=== PATIENT | female | born 1985 | race American Indian/Alaskan Native ===

== ENCOUNTER 2017-04-18 16:45 | Emergency (ER) | payer MEDICAID ==
[2017-04-18 18:10] LABS: Basophils % (Auto) 1.7 % (0.0-1.8); Eosinophils % (Auto) 0.2 % (0.0-4.3); Hematocrit 38.3 % (30.3-42.9); Hemoglobin 12.1 gm/dl (10.1-14.3); Mean Corpuscular HGB Conc 32 % (30-34); Mean Corpuscular Volume 76 fl (79-97); Platelet Count 441 K/mm3 (140-440); Red Blood Count 5.01 M/mm3 (3.65-5.03); Red Cell Distribution Width 16.1 % (13.2-15.2); White Blood Count 18.4 K/mm3 (4.5-11.0)
[2017-04-18 18:16] LABS: Mean Corpuscular Hemoglobin 24 pg (28-32)
[2017-04-18] MEDS ORDERED: TORADOL IV ONE (18:24)
[2017-04-18] MEDS ORDERED: NACL 0.9% 1000 ML 1,000 ML IV ONE (18:24)
[2017-04-18] MEDS ORDERED: ZOFRAN IV ONE (18:24)
[2017-04-18] MEDS ORDERED: ROCEPHIN/NS 1 GM/50 ML 1 GM/50 ML BAG IV ONE (18:26)
[2017-04-18 18:29] LABS: Anion Gap 19 mmol/L; BUN/Creatinine Ratio 6.25; Blood Urea Nitrogen 5 mg/dL (7-17); Calcium 8.9 mg/dL (8.4-10.2); Carbon Dioxide 23 mmol/L (22-30); Chloride 98.4 mmol/L (98-107); Glucose 88 mg/dL (65-100); Potassium 3.9 mmol/L (3.6-5.0); Sodium 136 mmol/L (137-145)
--- NOTE | 2017-04-18 18:33 | Emergency Department Report ---
ED Abdominal Pain HPI - General Chief Complaint: Urogenital-Female Stated Complaint: UTI Time Seen by Provider: 04/18/17 18:15 Source: patient Mode of arrival: Ambulatory Limitations: No Limitations - History of Present Illness Initial Comments: pt is a 31 y/o aaf with nmh who presents for left flank pain radiated to lower abdomen with urinary frequency urgency and dysuria x 3 days , noted noc fever with nausea and vomiting last po intake yesterday , no hematuria , LMP 2 weeks ago not sexually active MD Complaint: flank pain Onset/Timin -: days(s) Location: L flank Radiation: suprapubic Migration to: suprapubic Severity: moderate Severity scale (0 -10): 6 Quality: sharp Consistency: constant Improves With: nothing Worsens With: movement Associated Symptoms: nausea, vomiting, fever, chills, dysuria, anorexia. denies : diarrhea, constipation, hematemesis, hematochezia, melena, hematuria, syncope - Related Data LMP Date: 04/03/17 LMP (females 10-50): last week Previous Rx's Medication Instructions Recorded Last Taken Type Levofloxacin [Levaquin TAB] 500 mg PO DAILY #10 tablet 04/18/17 Unknown Rx Naproxen [Naprosyn TAB] 500 mg PO BID PRN #60 tablet 04/18/17 Unknown Rx Allergies Allergy/AdvReac Type Severity Reaction Status Date / Time No Known Allergies Allergy Verified 04/18/17 17:23 ED Review of Systems ROS: Stated complaint: UTI Other details as noted in HPI Constitutional: denies: chills, fever Eyes: denies: eye pain, eye discharge, vision change ENT: denies: ear pain, throat pain Respiratory: denies: cough, shortness of breath, wheezing Cardiovascular: denies: chest pain, palpitations Endocrine: no symptoms reported Gastrointestinal: nausea, vomiting, other (left flank pain ). denies: abdominal pain, diarrhea, constipation, hematemesis, melena, hematochezia Genitourinary: urgency, dysuria, frequency. denies: hematuria, discharge, abnormal menses, dyspareunia Musculoskeletal: denies: back pain, joint swelling, arthralgia Skin: denies: rash, lesions Neurological: denies: headache, weakness, paresthesias Psychiatric: denies: anxiety, depression Hematological/Lymphatic: denies: easy bleeding, easy bruising ED Past Medical Hx - Past Medical History Additional medical history: OBESITY - Surgical History Additional Surgical History: X 2 - Social History Smoking Status: Current Some Day Smoker Substance Use Type: None - Medications Home Medications: Home Medications Medication Instructions Recorded Confirmed Last Taken Type Levofloxacin [Levaquin TAB] 500 mg PO DAILY #10 tablet 04/18/17 Unknown Rx Naproxen [Naprosyn TAB] 500 mg PO BID PRN #60 tablet 04/18/17 Unknown Rx ED Physical Exam - General Limitations: No Limitations General appearance: alert, obese - Head Head exam: Present: atraumatic, normocephalic - Eye Eye exam: Present: normal appearance - ENT ENT exam: Present: mucous membranes moist - Neck Neck exam: Present: normal inspection - Respiratory Respiratory exam: Present: normal lung sounds bilaterally. Absent: respiratory distress, wheezes, stridor - Cardiovascular Cardiovascular Exam: Present: normal rhythm, tachycardia. Absent: systolic murmur, diastolic murmur, rubs, gallop - GI/Abdominal GI/Abdominal exam: Present: soft, normal bowel sounds. Absent: distended, tenderness, guarding, rebound, mass, bruit, pulsatile mass, hernia - Rectal Rectal exam: Present: deferred - Extremities Exam Extremities exam: Present: normal inspection, full ROM, normal capillary refill. Absent: tenderness - Back Exam Back exam: Present: full ROM, tenderness, CVA tenderness (L). Absent: muscle spasm, paraspinal tenderness, vertebral tenderness, rash noted - Neurological Exam Neurological exam: Present: alert, oriented X3, CN II-XII intact, normal gait, reflexes normal - Psychiatric Psychiatric exam: Present: normal affect, normal mood - Skin Skin exam: Present: warm, dry, intact. Absent: rash ED Course Vital Signs 04/18/17 04/18/17 17:25 19:23 Temperature 100.8 F H Pulse Rate 112 H Respiratory 17 18 Rate Blood Pressure 140/85 O2 Sat by Pulse 100 Oximetry ED Medical Decision Making - Lab Data Result diagrams: 04/18/17 17:43 04/18/17 17:43 Laboratory Tests 04/18/17 04/18/17 04/18/17 17:28 17:43 17:43 WBC 18.4 H RBC 5.01 Hgb 12.1 Hct 38.3 MCV 76 L MCH 24 L MCHC 32 RDW 16.1 H Plt Count 441 H Lymph % (Auto) 5.5 L [place] % (Auto) 6.7 Eos % (Auto) 0.2 Baso % (Auto) 1.7 Lymph # 1.0 L [place] # 1.2 H Eos # 0.0 Baso # 0.3 H Seg Neutrophils % 85.9 H Seg Neutrophils # 15.8 H Sodium 136 L Potassium 3.9 Chloride 98.4 Carbon Dioxide 23 Anion Gap 19 BUN 5 L Creatinine 0.8 Estimated GFR > 60 BUN/Creatinine Ratio 6.25 Glucose 88 POC Glucose 93 Calcium 8.9 HCG, Qual Urine Color Urine Turbidity Urine pH Ur Specific [place] Urine Protein Urine Glucose (UA) Urine Ketones Urine Blood Urine Nitrite Urine Bilirubin Urine Urobilinogen Ur Leukocyte Esterase Urine WBC (Auto) Urine RBC (Auto) U Epithel Cells (Auto) Urine Mucus 04/18/17 04/18/17 17:43 18:15 WBC RBC Hgb Hct MCV MCH MCHC RDW Plt Count Lymph % (Auto) [place] % (Auto) Eos % (Auto) Baso % (Auto) Lymph # [place] # Eos # Baso # Seg Neutrophils % Seg Neutrophils # Sodium Potassium Chloride Carbon Dioxide Anion Gap BUN Creatinine Estimated GFR BUN/Creatinine Ratio Glucose POC Glucose Calcium HCG, Qual Negative Urine Color Yellow Urine Turbidity Clear Urine pH 8.0 H Ur Specific [place] 1.012 Urine Protein <15 mg/dl Urine Glucose (UA) Neg Urine Ketones Neg Urine Blood Sm Urine Nitrite Neg Urine Bilirubin Neg Urine Urobilinogen < 2.0 Ur Leukocyte Esterase Lg Urine WBC (Auto) 179.0 H Urine RBC (Auto) 3.0 U Epithel Cells (Auto) 1.0 Urine Mucus Few - Radiology Data Radiology results: report reviewed Pyelonephritis right kidney no hydronephrosis - Medical Decision Making pt is a 31 y/o aaf with nmh who present for left flank pain fever dysuria and frequency x 3 days with n/v and loss of appetite, pt denies sexual activity , exam: left cva tenderness abd: obese bs x 4 qds no rebound no bruit soft nontender, pt denies hematuria, lmp 2 weeks ago, labs noted wbc +, Leuk+, ct abd pelvis: right pyelonephritis, no hydronephrosis, pt tx with ns 1 liter, rocephin 1gm ivpb, ketorlac, zofran symptoms are relieved pain now reported at plan dc to home with Levaquin 500mg po daily, Tramdol zofran po and follow up with pcp upon appointment pt verbalized agreement and understanding with discharge plan. pt symptoms markedly improved tolerate po intake no nausea or vomiting expesses which for outpatient management, provider agrees , will tx outpt discuss importance of adherence rx regimen and return to emergency if symptoms worsen. pt verbalized agreement with discharge plan. Critical care attestation.: If time is entered above; I have spent that time in minutes in the direct care of this critically ill patient, excluding procedure time. ED Disposition Clinical Impression: Pyelonephritis UTI (urinary tract infection) Qualifiers: Urinary tract infection type: acute pyelonephritis Qualified Code(s): N10 - Acute pyelonephritis Disposition: DC-01 TO HOME OR SELFCARE Is pt being admited?: No Does the pt Need Aspirin: No Condition: Good Instructions: Urinary Tract Infection in Women (ED) Prescriptions: Levofloxacin [Levaquin TAB] 500 mg PO DAILY #10 tablet Naproxen [Naprosyn TAB] 500 mg PO BID PRN #60 tablet PRN Reason: Pain Referrals: PRIMARY CARE, [Primary Care Provider] - 3-5 Days Forms: Work/School Release Form(ED) Time of Disposition: 20:59
[2017-04-18 19:01] LABS: Bilirubin,Urine NEG (Negative); Blood,Urine SM (Negative); Ketones,Urine NEG (Negative); Leukocyte Esterase,Urine LG (Negative); Mucus,Urine FEW /HPF; Nitrite,Urine NEG (Negative); Protein,Urine <15 mg/dL mg/dL (Negative); Urobilinogen,Urine < 2.0 mg/dL (<2.0)
[2017-04-18] MEDS ORDERED: NACL ONE (19:18)
--- NOTE | 2017-04-18 20:40 | Cat Scan Report ---
FINAL REPORT EXAM: CT ABDOMEN PELVIS W CON HISTORY: r/o obstructive stone/nephrosis / pyelo TECHNIQUE: CT of the abdomen and pelvis with IV contrast. Coronal and sagittal reconstructed imaging provided. PRIORS: None currently available. FINDINGS: ABDOMEN: Series 2:110 and series 200:108 demonstrates a ill-defined area decreased cortical attenuation upper right kidney with associated focal perinephric stranding. Findings may represent a focal right pyelonephritis. Differential diagnosis would include a lesion. No right hydronephrosis or stone is evident. Left kidney appears relatively unremarkable. No perinephric stranding. No left hydronephrosis. No obvious stone. Mild bilateral pelviectasis. Liver, gallbladder, spleen, pancreas, and adrenals are unremarkable. Small hiatal hernia. Stomach is otherwise unremarkable. IVC is intact. No abdominal aortic aneurysm or dissection. No periaortic or retroperitoneal mass or adenopathy. Diverticulosis of the descending and sigmoid colon. Mild stool throughout the colon. No wall thickening or inflammatory changes. Terminal ilium is unremarkable. Appendix is not clearly identified. There are no pericecal inflammatory changes. Small bowel loops are unremarkable. No obstructive pattern. No free air. No free fluid. PELVIS: Bladder is unremarkable. No wall thickening. No distinct lesions. Limited CT images of the uterus are grossly unremarkable. There is no pelvic mass or adenopathy. Inguinal regions are unremarkable. Bones: No suspicious osseous lesions on this limited examination of the skeleton. Metastatic disease better evaluated with bone scan. Degenerative changes are in the spine. IMPRESSION: Focal area of ill-defined decreased cortical attenuation in the right upper kidney may represent a focal pyelonephritis. Differential diagnosis would include lesion or tumor. Mild adjacent perinephric stranding noted. No hydronephrosis. No right nephroureteral stone.
[2017-04-18 21:50] VITALS: BP 129/69
== END 2017-04-18 21:10 | disposition home or self-care (01) ==
LOC: ED 16:45
DX: N10 Acute pyelonephritis (principal); F17.200 Nicotine dependence, unspecified, uncomplicated
CPT/HCPCS: 36415; 74177; 80048; 81001; 82962; 84703; 85025; 96365; 96375; 99284; J0696; J1885; J2405; J7030; Q9967

== ENCOUNTER 2017-07-31 18:58 | Emergency (ER) | payer MEDICAID ==
[2017-07-31 19:41] LABS: Hematocrit 42.8 % (30.3-42.9); Hemoglobin 13.3 gm/dl (10.1-14.3); Mean Corpuscular HGB Conc 31 % (30-34); Mean Corpuscular Volume 76 fl (79-97); Platelet Count 389 K/mm3 (140-440); Red Blood Count 5.63 M/mm3 (3.65-5.03); Red Cell Distribution Width 17.1 % (13.2-15.2); White Blood Count 16.9 K/mm3 (4.5-11.0)
[2017-07-31 19:43] LABS: Mean Corpuscular Hemoglobin 24 pg (28-32)
[2017-07-31 19:57] LABS: Anion Gap 16 mmol/L; BUN/Creatinine Ratio 9; Blood Urea Nitrogen 9 mg/dL (7-17); Calcium 8.6 mg/dL (8.4-10.2); Carbon Dioxide 26 mmol/L (22-30); Chloride 102.3 mmol/L (98-107); Glucose 71 mg/dL (65-100); Potassium 4.2 mmol/L (3.6-5.0); Sodium 140 mmol/L (137-145)
[2017-07-31 21:26] LABS: Bilirubin,Urine NEG (Negative); Blood,Urine NEG (Negative); Ketones,Urine NEG (Negative); Leukocyte Esterase,Urine SM (Negative); Mucus,Urine 3+ /HPF; Nitrite,Urine NEG (Negative)
[2017-07-31 23:38] VITALS: BP 130/87
[2017-08-01 06:50] LABS: Urine Drugs of Abuse Note Disclamer
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
[2017-08-01 06:54] LABS: Creatine Kinase 67 units/L (30-135)
[2017-08-01 07:01] LABS: Creatine Kinase MB < 1.0 ng/mL (0.0-4.0)
--- NOTE | 2017-08-01 07:15 | Cat Scan Report ---
CT scan of head without IV contrast: History: Syncope. Findings: Ventricles are normal in size and midline in location. No evidence of acute ischemia, hemorrhage or mass. No extra-axial fluid collection. Normal brainstem and cerebellum. Normal sinuses and mastoid air cells. Impression: No acute intracranial abnormality.
[2017-08-01] MEDS ORDERED: NACL ONE ×2 (08:17→09:23)
--- NOTE | 2017-08-01 09:51 | Cat Scan Report ---
CTA chest: History: Syncope. Findings: No evidence of aortic aneurysm or pulmonary embolism. No mediastinal mass or adenopathy. No pleural or pericardial effusion. Normal lung parenchyma. No discrete nodularity or consolidation. Impression: No acute cardiopulmonary findings.
== END 2017-08-01 10:27 | disposition home or self-care (01) ==
LOC: ED 18:58
DX: R55 Syncope and collapse (principal); F17.200 Nicotine dependence, unspecified, uncomplicated
CPT/HCPCS: 36415; 70450; 71275; 80048; 80307; 81001; 81025; 82550; 82553; 84484; 85027; 85379; 93005; 93010; 99284; Q9967

== ENCOUNTER 2018-01-10 15:46 | Emergency (ER) | payer MEDICAID ==
[2018-01-10] MEDS ORDERED: ZOFRAN ODT PO ONE (20:31)
[2018-01-10] MEDS ORDERED: TYLENOL PO ONE (20:31)
--- NOTE | 2018-01-10 20:57 | Emergency Department Report ---
ED Shortness of Breath HPI - General Chief Complaint: Weakness Stated Complaint: SHORTNESS OF BREATH/12 WEEKS Time Seen by Provider: 01/10/18 20:21 Source: patient Mode of arrival: Ambulatory Limitations: No Limitations - History of Present Illness Initial Comments: 32-year-old obese female presents to the hospital with complaints of sudden onset of shortness of breath patient prior to arrival. Patient states she was returning from work when symptoms began. They lasted for approximately 45 minutes prior to resolving. Patient complains of a right-sided headache typical of her previous migraine headaches. Patient denies chest pain, nausea, vomiting, or diaphoresis. 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 This patient's fourth , she has 4 children (one twin gestation) and reports that she has had elevated blood pressure during her pregnancies in the past. She denies a history of preeclampsia/eclampsia. - Related Data Previous Rx's Medication Instructions Recorded Last Taken Type Levofloxacin [Levaquin TAB] 500 mg PO DAILY #10 tablet 04/18/17 Unknown Rx Naproxen [Naprosyn TAB] 500 mg PO BID PRN #60 tablet 04/18/17 Unknown Rx Allergies Allergy/AdvReac Type Severity Reaction Status Date / Time No Known Allergies Allergy Verified 01/10/18 15:52 ED Review of Systems ROS: Stated complaint: SHORTNESS OF BREATH/12 WEEKS Other details as noted in HPI Comment: All other systems reviewed and negative ED Past Medical Hx - Past Medical History Previous Medical History?: No Additional medical history: OBESITY - Surgical History Additional Surgical History: X 2 - Social History Smoking Status: Current Some Day Smoker Substance Use Type: None - Medications Home Medications: Home Medications Medication Instructions Recorded Confirmed Last Taken Type Levofloxacin [Levaquin TAB] 500 mg PO DAILY #10 tablet 04/18/17 Unknown Rx Naproxen [Naprosyn TAB] 500 mg PO BID PRN #60 tablet 04/18/17 Unknown Rx ED Physical Exam - General Limitations: No Limitations - Other Other exam information: General: No limitations, patient is alert in no acute distress Head exam: Atraumatic, normocephalic Eyes exam: Normal appearance, , extraocular movements intact ENT: Moist mucous membrane, normal oropharynx Neck exam: Normal inspection, full range of motion, no meningismus nontender Respiratory exam: Clear to auscultation bilateral, no wheezes, rales, crackles Cardiovascular: Normal rate and rhythm, normal heart sounds Abdomen: Soft, nondistended, and nontender, with normal bowel sounds, no rebound, or guarding Extremity: Full range of motion normal inspection no deformity, no calf tenderness or edema Back: Normal Inspection, full range of motion, no tenderness Neurologic: Alert, oriented x3, cranial nerves intact, no motor or sensory deficit Psychiatric: normal affect, normal mood Skin: Warm, dry, intact ED Course Vital Signs 01/10/18 01/10/18 01/10/18 15:52 20:34 20:45 Temperature 98.4 F Pulse Rate 101 H 84 76 Respiratory 18 20 24 Rate Blood Pressure 140/96 169/103 O2 Sat by Pulse 100 80 L Oximetry 01/10/18 01/10/18 01/10/18 20:56 21:00 21:15 Temperature Pulse Rate 72 68 Respiratory 20 23 22 Rate Blood Pressure 161/96 161/96 O2 Sat by Pulse 98 100 100 Oximetry 01/10/18 01/10/18 01/10/18 21:31 21:45 22:01 Temperature Pulse Rate 80 66 82 Respiratory 16 20 13 Rate Blood Pressure 148/81 148/81 129/81 O2 Sat by Pulse 100 100 100 Oximetry 01/10/18 22:15 Temperature Pulse Rate 80 Respiratory 17 Rate Blood Pressure 129/81 O2 Sat by Pulse 100 Oximetry ED Medical Decision Making - Lab Data Result diagrams: 01/10/18 20:50 01/10/18 20:50 Lab Results 01/10/18 01/10/18 01/10/18 Range/Units 20:50 20:50 20:50 WBC 15.7 H (4.5-11.0) K/mm3 RBC 4.53 (3.65-5.03) M/mm3 Hgb 10.9 (10.1-14.3) gm/dl Hct 35.0 (30.3-42.9) % MCV 77 L (79-97) fl MCH 24 L (28-32) pg MCHC 31 (30-34) % RDW 16.1 H (13.2-15.2) % Plt Count 356 (140-440) K/mm3 Lymph % (Auto) 10.1 L (13.4-35.0) % [place] % (Auto) 4.1 (0.0-7.3) % Eos % (Auto) 0.5 (0.0-4.3) % Baso % (Auto) 0.5 (0.0-1.8) % Lymph # 1.6 (1.2-5.4) K/mm3 [place] # 0.6 (0.0-0.8) K/mm3 Eos # 0.1 (0.0-0.4) K/mm3 Baso # 0.1 (0.0-0.1) K/mm3 Seg Neutrophils % 84.8 H (40.0-70.0) % Seg Neutrophils # 13.4 H (1.8-7.7) K/mm3 D-Dimer 317.81 H (0-234) ng/mlDDU Sodium 136 L (137-145) mmol/L Potassium 3.8 (3.6-5.0) mmol/L Chloride 98.9 (98-107) mmol/L Carbon Dioxide 22 (22-30) mmol/L Anion Gap 19 mmol/L BUN 5 L (7-17) mg/dL Creatinine 0.5 L (0.7-1.2) mg/dL Estimated GFR > 60 ml/min BUN/Creatinine Ratio 10 % Glucose 78 (65-100) mg/dL Calcium 8.6 (8.4-10.2) mg/dL NT-Pro-B Natriuret Pep 18.81 (0-450) pg/mL - EKG Data -: EKG Interpreted by Or EKG shows normal: sinus rhythm, axis (qrs 33), QRS complexes (qrsd 80), ST-T waves (no stemi/t inv) Rate: normal (88) - Radiology Data Radiology results: report reviewed CT angio chest IMPRESSION: No evidence of pulmonary embolus, aortic dissection, or vascular congestion. No acute process in the chest. Small hiatal hernia. - Medical Decision Making Headache Typical of previous migraines Treated with Tylenol and Zofran sob neg cta angio for pe no acute process h/h normal vitals normal sx improved incidental hiatal hernia plan to d/c home with f/u - Differential Diagnosis anxiety, arrhythmia, anemia, PE, migraine Critical Care Time: No Critical care attestation.: If time is entered above; I have spent that time in minutes in the direct care of this critically ill patient, excluding procedure time. ED Disposition Clinical Impression: , Intermittent palpitations, Hiatal hernia, Migraine headache Disposition: TO HOME OR SELFCARE Is pt being admited?: No Does the pt Need Aspirin: No Condition: Stable Instructions: Migraine Headache (ED), Palpitations (ED), (ED), Hiatal Hernia (ED) Additional Instructions: Take Tylenol as needed for pain. Follow-up with your ELECTRIC METER INSPECTOR doctor. Return is symptoms worsen as indicated by your discharge instructions Referrals: [facility] [Provider Group] - 3-5 Days Time of Disposition: 23:37
[2018-01-10 21:05] LABS: Basophils # (Auto) 0.1 K/mm3 (0.0-0.1); Basophils % (Auto) 0.5 % (0.0-1.8); Eosinophils # (Auto) 0.1 K/mm3 (0.0-0.4); Eosinophils % (Auto) 0.5 % (0.0-4.3); Hemoglobin 10.9 gm/dl (10.1-14.3); Lymphocytes # (Auto) 1.6 K/mm3 (1.2-5.4); Lymphocytes % (Auto) 10.1 % (13.4-35.0); Mean Corpuscular HGB Conc 31 % (30-34); Mean Corpuscular Volume 77 fl (79-97); Monocytes # (Auto) 0.6 K/mm3 (0.0-0.8); Monocytes % (Auto) 4.1 % (0.0-7.3); Platelet Count 356 K/mm3 (140-440); Red Blood Count 4.53 M/mm3 (3.65-5.03); Red Cell Distribution Width 16.1 % (13.2-15.2)
[2018-01-10 21:09] LABS: Mean Corpuscular Hemoglobin 24 pg (28-32)
[2018-01-10 21:28] LABS: BUN/Creatinine Ratio 10; Blood Urea Nitrogen 5 mg/dL (7-17); Calcium 8.6 mg/dL (8.4-10.2); Hemolysis Index 4
[2018-01-10] MEDS ORDERED: NACL ONE (22:13)
[2018-01-10 23:20] VITALS: BP 129/81
--- NOTE | 2018-01-10 23:25 | Cat Scan Report ---
FINAL REPORT EXAM: CT ANGIO CHEST HISTORY: sob, elevated ddimer, TECHNIQUE: A CT angiogram was obtained of the thorax following the intravenous injection of 100 cc of Omnipaque 350. Rotational, sagittal, and coronal MIP reconstructions were reviewed FINDINGS: The lungs are clear. There no evidence of congestion. There is no evidence of pulmonary embolus or aortic dissection. The heart is mildly enlarged. Pericardial fluid is not seen. There is no evidence of adenopathy or pleural effusion. In the upper abdomen the adrenal glands appear normal. There is a small hiatal hernia. The skeletal structures are well-maintained. At the thoracic inlet the thyroid gland appears normal. IMPRESSION: No evidence of pulmonary embolus, aortic dissection, or vascular congestion. No acute process in the chest. Small hiatal hernia.
== END 2018-01-11 00:16 | disposition home or self-care (01) ==
LOC: ED 15:46
DX: O99.411 Diseases of the circulatory system complicating pregnancy, first trimester (principal); R00.2 Palpitations; R06.02 Shortness of breath; O99.351 Diseases of the nervous system complicating pregnancy, first trimester; G43.909 Migraine, unspecified, not intractable, without status migrainosus; O99.611 Diseases of the digestive system complicating pregnancy, first trimester; K44.9 Diaphragmatic hernia without obstruction or gangrene; O99.331 Smoking (tobacco) complicating pregnancy, first trimester; F17.200 Nicotine dependence, unspecified, uncomplicated; Z3A.12 12 weeks gestation of pregnancy
CPT/HCPCS: 36415; 71275; 80048; 83880; 85025; 85379; 93005; 93010; 99284; Q9967; Q0162

== ENCOUNTER 2018-03-19 20:50 | Outpatient (CLI) | payer MEDICAID ==
[2018-03-19 21:37] VITALS: BP 131/76
[2018-03-19] MEDS ORDERED: LACTATED RINGERS 500 ML IV ONE (22:19)
[2018-03-19 22:33] LABS: Amorphous Crystals,Urine Few; Bilirubin,Urine NEG (Negative); Blood,Urine NEG (Negative); Color,Urine Amber (Yellow); Mucus,Urine 2+ /HPF
--- NOTE | 2018-03-20 01:41 | Ultrasound Report ---
FINAL REPORT EXAM: US OB LIMITED HISTORY: Spotting COMPARISON: None available. TECHNIQUE: Several real-time grayscale and color Doppler images were obtained. FINDINGS: Twin live intrauterine gestations. Twin a heart rate 151 beats per minute. Placenta location anterior. No placenta previa. Twin B heart rate 140 beats per minute. Placenta location posterior. No placenta previa. Cervix is closed and measures 4.1 centimeters in length. Diamniotic dichorionic . IMPRESSION: Twin live intrauterine gestations. Diamniotic, dichorionic . Limited exam performed for evaluation of placental location cervical length.
== END 2018-03-20 00:04 | disposition home or self-care (01) ==
LOC: TRG 20:50
PROVIDERS: ATTEND Obstetrics & Gynecology
DX: O46.92 Antepartum hemorrhage, unspecified, second trimester (principal); Z82.49 Family history of ischemic heart disease and other diseases of the circulatory system; Z83.3 Family history of diabetes mellitus; Z3A.23 23 weeks gestation of pregnancy
CPT/HCPCS: 59025; 76815; 81001

== ENCOUNTER 2018-05-12 15:28 | Outpatient (CLI) | payer MEDICAID ==
[2018-05-12] MEDS ORDERED: LACTATED RINGERS 500 ML IV ONE (15:46)
[2018-05-12 16:32] VITALS: BP 125/63
[2018-05-12 16:58] LABS: Hematocrit 27.2 % (30.3-42.9); Hemoglobin 8.5 gm/dl (10.1-14.3); Mean Corpuscular HGB Conc 31 % (30-34); Mean Corpuscular Hemoglobin 22 pg (28-32); Mean Corpuscular Volume 70 fl (79-97); Platelet Count 343 K/mm3 (140-440); Red Blood Count 3.89 M/mm3 (3.65-5.03); Red Cell Distribution Width 17.5 % (13.2-15.2)
[2018-05-12 17:19] LABS: Alanine Aminotransferase 11 units/L (7-56); Uric Acid 3.9 mg/dL (3.5-7.6)
[2018-05-12 17:21] LABS: Bilirubin,Urine NEG (Negative); Blood,Urine NEG (Negative); Mucus,Urine 2+ /HPF
[2018-05-12 17:25] LABS: Color,Urine Yellow (Yellow)
--- NOTE | 2018-05-12 18:25 | Ultrasound Report ---
FINAL REPORT EXAM: US OB BPP EA ADD EXAM HISTORY: WELL BEING for baby B TECHNIQUE: Ultrasound examination of the gravid uterus for biophysical profile evaluation of the fetus PRIORS: 03/19/2018 FINDINGS: There is a single viable intrauterine with documented cardiac activity. heart rate: 156 bpm Evaluation for biophysical profile yields the following score as reported by technologist from real-time exam: respiratory motion (minimum one episode): 2 Gross body movement (minimum 3 movements): 2 tone (minimum one flexion and extension): 2 Amniotic fluid volume (at least 2 cm pocket in vertical diameter): 2 IMPRESSION: Single viable intrauterine with 8/8 biophysical profile score during the sonographic evaluation for baby B
--- NOTE | 2018-05-12 18:26 | Ultrasound Report ---
FINAL REPORT EXAM: US OB BPP WO NON-STRESS HISTORY: labor , well-being for baby A TECHNIQUE: Ultrasound examination of the gravid uterus for biophysical profile evaluation of the fetus PRIORS: 03/19/2018 FINDINGS: There is a single viable intrauterine with documented cardiac activity. The amniotic fluid volume is normal. heart rate: 155 bpm Evaluation for biophysical profile yields the following score as reported by technologist from real-time exam: respiratory motion (minimum one episode): 2 Gross body movement (minimum 3 movements): 2 tone (minimum one flexion and extension): 2 Amniotic fluid volume (at least 2 cm pocket in vertical diameter): 2 IMPRESSION: Single viable intrauterine with 8/8 biophysical profile score during the sonographic evaluation for baby A
--- NOTE | 2018-05-12 18:35 | Ultrasound Report ---
FINAL REPORT EXAM: US OB LIMITED HISTORY: labor, twins TECHNIQUE: Ultrasound evaluation of the gravid uterus PRIORS: 03/19/2018 FINDINGS: There is a twin viable intrauterine with documented cardiac activity. The maternal cervix is closed. Maternal cervix length: 3.7cm Amniotic fluid maximum vertical pocket: 3.1 cm twin A and 3.3 cm twin B LMP estimated gestational age: 30 weeks 6 days LMP estimated delivery date: 07/15/2018 Twin A: No definite ratio abnormality. Heart rate: 160 beats per minute position: Transverse head maternal right Twin B: No definite ratio abnormality. Heart rate: 158 beats per minute position: Transverse head maternal left IMPRESSION: Viable twin intrauterine with the above parameters
--- NOTE | 2018-05-12 19:29 | Ultrasound Report ---
FINAL REPORT PROCEDURE: US OB VELOCIMETRY UMBILCAL ART TECHNIQUE: Real-time limited sonographic examination was performed for evaluation of umbilical cord Doppler. Doppler and spectral waveform analysis performed. HISTORY: well being. COMPARISON: Reports from obstetric ultrasounds dated to day. FINDINGS: LMP: 10/08/2017. Clinical age: 30 weeks 6 days. EDC: 07/15/2018. Twin B heart rate: 150 beats per minute S/D ratio: 3.09. One loop was greater than 4, average less than 4. Resistive index: 0.64. Normal waveform. IMPRESSION: S/D ratio is elevated, one S/D loop greater than 4, the average was less than 4. Consider clinical correlation if there is concern for utero placental insufficiency.
--- NOTE | 2018-05-12 19:31 | Ultrasound Report ---
FINAL REPORT PROCEDURE: US OB VELOCIMETRY UMBILCAL ART TECHNIQUE: Real-time limited sonographic examination was performed for evaluation of umbilical cord Doppler. Doppler and spectral waveform analysis performed. HISTORY: well being. COMPARISON: Reports from obstetric ultrasounds dated today. FINDINGS: LMP: 10/08/2017. Clinical age: 30 weeks 6 days. EDC: 07/15/2018. Twin A heart rate: 149 beats per minute S/D ratio: 2.05, normal waveform Resistive index: 0.84, normal waveform Impression Normal umbilical cord Doppler exam.
== END 2018-05-12 18:24 | disposition home or self-care (01) ==
LOC: TRG 15:28
PROVIDERS: ATTEND Obstetrics & Gynecology
DX: O47.03 False labor before 37 completed weeks of gestation, third trimester (principal); Z3A.30 30 weeks gestation of pregnancy
CPT/HCPCS: 36415; 59025; 76815; 76819; 76820; 81001; 82565; 83615; 84450; 84460; 84550; 85027

== ENCOUNTER 2018-06-03 19:19 | Outpatient (CLI) | payer MEDICAID, OTHER ==
[2018-06-03] MEDS ORDERED: LACTATED RINGERS 1,000 ML IV ONE (20:33)
[2018-06-03 21:14] LABS: Bilirubin,Urine NEG (Negative); Blood,Urine NEG (Negative); Color,Urine Yellow (Yellow); Mucus,Urine 1+ /HPF
[2018-06-03] MEDS ORDERED: PERCOCET 5/325 PO ONE (23:04)
[2018-06-03] MEDS ORDERED: LACTATED RINGERS 1,000 ML ONE (23:38)
[2018-06-04] MEDS: BRETHINE SUB-Q SCH ×3 (01:05→01:51)
[2018-06-04 01:06] VITALS: BP 126/74
== END 2018-06-04 02:33 | disposition home or self-care (01) ==
LOC: TRG 19:19
PROVIDERS: ATTEND Obstetrics & Gynecology
DX: O26.893 Other specified pregnancy related conditions, third trimester (principal); M54.5 Low back pain; R51 Headache; Z3A.34 34 weeks gestation of pregnancy; Z83.3 Family history of diabetes mellitus; Z82.49 Family history of ischemic heart disease and other diseases of the circulatory system
CPT/HCPCS: 59025; 81001; 96360; 96361; 96372; J3105; J7120

== ENCOUNTER 2018-06-12 11:34 | Inpatient (IN) | payer MEDICAID, OTHER ==
--- NOTE | 2018-06-12 08:57 | History and Physical Report ---
History of Present Illness Date of admission: scheduled repeat section History of present illness: 32yo G P 35 2/7weeks with dichorionic-diamnoitic twin gestation presents for repeat section. This has been complicated by IUGR of Twin B (3%), chronic hypertension, morbid obesity and multiple sclerosis. She reports good movement of both twins, no loss of fluid and no vaginal bleeding. She has been comanaged with [facility] but did miss one month of appointments. At her last appointment it was noted that Twin B remained IUGR and and the decision was made to proceed to delivery. She has received betamethasone for lung maturity. Last dose 05/16/18. Past History - Obstetrical History : 4 Medications and Allergies Allergies Allergy/AdvReac Type Severity Reaction Status Date / Time No Known Allergies Allergy Verified 01/10/18 15:52 Home Medications Medication Instructions Recorded Confirmed Last Taken Type Pnv No.95/Ferrous Fum/Folic AC 1 each PO DAILY 05/22/18 06/04/18 06/02/18 History [Prenavite Tablet] Results Result Diagrams: 06/12/18 12:00 All other labs normal. Assessment and Plan - Patient Problems (1) Dichorionic diamniotic twin gestation Current Visit: No Status: Acute Plan to address problem: 1. s/p betamethasone 05/25-05/26/18 2. IUGR Twin B - decision made to proceed to repeat csection with [facility] comanagement. Risks including but not limited to bleeding, infection, need for blood transfusion or hysterectomy, potential injury to bladder, bowel and surrounding organs and risks of surgery including stroke, myocardial infection discussed and informed consent signed. 3. IVF, Ancef 4. SCDs (2) Chronic hypertension affecting Current Visit: No Status: Acute Plan to address problem: 1. Will monitor BP and evaluate for superimposed preeclampsia if clinically indicated. (3) Morbid obesity Current Visit: No Status: Acute (4) Multiple sclerosis Current Visit: No Status: Acute Plan to address problem: stable (5) IUGR (intrauterine growth restriction) Current Visit: No Status: Acute Plan to address problem: 1. Delivery planned today Twin B EFW 3% 1903g, 4lb 3 oz Cephalic Twin A EFW 13% 2150g, 4lb 12 oz Breech (6) Encounter for female sterilization procedure Current Visit: No Status: Acute Plan to address problem: 1. Patient is multiparous and desires permanent sterilization. Risks including but not limited to risk of failure and ectopic discussed and informed consent signed. (7) Anemia Current Visit: Yes Status: Acute Plan to address problem: Anemia of - Type Cross and hold 2 units packed red blood cells for OR due to increased risk of bleeding (twin gestation, morbid obesity, previous csection x 2)
[~2018-06-12 11:34] MED LIST: ANCEF/STERILE WATER 2 GM/20 ML 2 GM/20 ML SYRINGE IV NR; BICITRA PO ONE; LACTATED RINGERS 1,000 ML IV SCH; PEPCID IV ONE; PITOCin/NS 20 UNIT/1000ML DRIP 20 UNITS/1,000 ML BAG IV SCH; REGLAN IV ONE
[2018-06-12 12:42] LABS: Basophils % (Auto) 0.4 % (0.0-1.8); Eosinophils % (Auto) 0.3 % (0.0-4.3); Hematocrit 29.5 % (30.3-42.9); Hemoglobin 9.3 gm/dl (10.1-14.3); Lymphocytes # (Auto) 1.4 K/mm3 (1.2-5.4); Lymphocytes % (Auto) 13.5 % (13.4-35.0); Mean Corpuscular HGB Conc 32 % (30-34); Mean Corpuscular Hemoglobin 21 pg (28-32); Mean Corpuscular Volume 68 fl (79-97); Monocytes # (Auto) 0.5 K/mm3 (0.0-0.8); Monocytes % (Auto) 4.4 % (0.0-7.3); Platelet Count 322 K/mm3 (140-440); Red Blood Count 4.34 M/mm3 (3.65-5.03); Red Cell Distribution Width 18.9 % (13.2-15.2)
[2018-06-12] MEDS ORDERED: PEPCID IV ONE (13:07)
[2018-06-12] MEDS ORDERED: REGLAN ONE (13:07)
[2018-06-12] MEDS ORDERED: BICITRA ONE (13:07)
[2018-06-12] MEDS ORDERED: NACL 0.9% 500 ML 500 ML IV ONE (13:15)
[2018-06-12] MEDS ORDERED: MORPHINE ONE (14:27)
[2018-06-12] MEDS ORDERED: WATER FOR IRRIG STERILE IR ONE (14:53)
[2018-06-12] MEDS ORDERED: NACL 0.9% IR ONE (14:53)
[2018-06-12] MEDS ORDERED: NEO SYNEPHRINE/NS Syringe(OR USE) IV ONE (15:53)
[2018-06-12] MEDS ORDERED: DILAUDID ONE ×2 (15:53→16:12)
--- NOTE | 2018-06-12 16:23 | Operative Report ---
Operative Report Operative Report: PREOP Diagnosis 1. 35 2/7 weeks gestation 2. Dichorionic-diamnoitic twin gestation 3. Intrauterine growth restriction - Twin B 4. Malpresentation - Twin A 5. Previous section 6. Anemia of 7. Chronic hypertension 8. Morbid obesity 9. Multiple sclerosis 10. Multiparity desires permanent sterilization Postop Diagnosis 1. 35 2/7 weeks gestation 2. Dichorionic-diamnoitic twin gestation 3. Intrauterine growth restriction - Twin B 4. Malpresentation - Twin A 5. Previous section 6. Anemia of 7. Chronic hypertension 8. Morbid obesity 9. Multiple sclerosis 10. Multiparity desires permanent sterilization Procedure: 1. Repeat low-transverse section 2. Right salpingectomy 3. Left tubal ligation via modified Monroe method Findings 1. Twin A Viable male infant in the breech position, weighing 5lb 0oz, 2769g APGARS 8 at 1 min, 9 at 5 min 2. Twin B Viable female infant in the vertex position, weighing 4lb 3oz, 1900g APGARS 8 at 1 min, 9 at 5 min 3. Normal uterus, bilateral ovaries and tubes 4. Venous plexus varicosities Surgeon 1. Patricia Perez MD Anesthesia: 1.Spinal I/O: EBL: 900ml IVF 1500ml LR UOP 50ml Specimens removed: 1. Placenta x 2 - sent to pathology for twin gestation, IUGR Complications: none Disposition: Patient taken to recovery room in stable condition INDICATIONS: The patient is a 32yo [id number] at 35 2/7weeks that presents for a scheduled repeat section with bilateral tubal ligation. She was comanaged with [facility] and indication for csection is IUGR of twin B with chronic hypertension. Risks including but not limited to bleeding, infections, injury to surrounding organs, potential injury to mother/infant, failure and risk of ectopic were discussed. All questions were answered and informed consent signed. PROCEDURE: The patient was taken to the OR in stable condition. Adequate anesthesia was achieved with epidural anesthesia. heart tones were confirmed in the OR for both twins. A hernandez catheter was placed. She wore SCDs for DVT prophylaxis. And received Ancef for infection prophylaxis. The patient was prepped and draped in the usual fashion and an additional time out was done. A Pfannestiel incision was made in the skin and carried down to the fascia. The fascia was incised and the incision extended laterally. The superior and inferior aspect of the rectus muscle was dissected off of the fascia. Entry into the peritoneum was achieved and the incision was extended cranially and caudally. The vesicouterine fold was carefully dissected off the lower uterine segment. A low-transverse incision made made in the uterus and extended laterally. membranes were ruptured and noted to be clear. Twin A was noted to be in breech presentation. The right and left lower extremity was swept across torso and delivered, body delivered and head delivered spontaneously. was bulb suctioned, cord clamped x2 and handed off to awaiting senior warehouse clerk staff. Attention was then turned to Twin B, membranes were ruptured and noted to be clear. head was delivered, body delivered. was bulb suctioned. The cord was clamped x 2, cut and handed off to awaiting senior warehouse clerk staff. Cord blood was collected. The placentas was delivered intact. 20 units of IV Pitocin was added to LR fluids. The uterus was cleaned of all clots. The uterus was exteriorized and repaired with 0-Vicryl in a running, locked stitch and an imbricating layer of the same suture was used. The right tube was grasped with the Jesus elevated and a tubal sterilization as done via modified Pomerory method at the isthmus using 0-plaingut. Attention was then turned to the left tube where the same procedure was carried out. Bleeding from the left venous plexus was noted and the tube was secured with 0-plaingut. Observation of the right tube noted bleeding from the mesosalpinx and distal tube so decision was made to do a right salpingectomy. The mesosalpinx was made hemostatic by 2-0 Vicryl running locked future. The left tube was noted to bleed and 2-0 Vicryl was used to maintain hemostasis of the mesosalpinx. The rectus muscle was re-approximated with 2-0Vicryl. Fascia was closed with 0 Vicryl. The Subcutaneous layer reapproximated with 2-0 Vicryl. The skin was then closed with 4-0 Vicryl. The patient tolerated the procedure well. All counts were correct x 3. Urine was noted to be clear at close of case. I was present and scrubbed for the entire procedure. The patient was taken to the recovery room in stable condition.
[2018-06-12] MEDS ORDERED: TORADOL IV PRN (16:27)
[2018-06-12] MEDS ORDERED: NARCAN 0.4 MG/1 ML IV PRN (16:27)
[2018-06-12] MEDS ORDERED: PERCOCET 5/325 PO PRN (16:27)
[2018-06-12] MEDS ORDERED: TUCKS PAD TP PRN (16:27)
[2018-06-12] MEDS ORDERED: MILK OF MAGNESIA PO PRN (16:27)
[2018-06-12] MEDS ORDERED: LANSINOH TP PRN (16:27)
[2018-06-12] MEDS ORDERED: ZOFRAN IV PRN (16:27)
[2018-06-12] MEDS ORDERED: MORPHINE IV PRN (16:27)
[2018-06-12] MEDS ORDERED: XYLOCAINE MPF 2% ONE (16:32)
[2018-06-12] MEDS ORDERED: SODIUM CHLORIDE FLUSH SYRINGE 10 ML IV SCH (17:00)
[2018-06-12] MEDS ORDERED: BENADRYL IV PRN (20:25)
[2018-06-12] MEDS ORDERED: MORPHINE PCA 30MG/30ML IV SCH (21:00)
[2018-06-13] MEDS ORDERED: LACTATED RINGERS 1,000 ML IV SCH (04:00)
[2018-06-13 04:29] LABS: Hematocrit 25.5 % (30.3-42.9); Hemoglobin 7.8 gm/dl (10.1-14.3)
[2018-06-13] MEDS: FEOSOL PO SCH ×2 (10:00→21:36)
--- NOTE | 2018-06-13 10:13 | Progress Note ---
Assessment and Plan A: /postop day 1 S/P low transverse section. Anemia. P: Encouraged patient to ambulate today. Advance diet when patient passes gas. Continue iron supplementation. Subjective - Subjective Date of service: 06/13/18 Principal diagnosis: /postop day 1 S/P low transverse section Interval history: /postop day 1 S/P low transverse section. Patient is doing well. Ramires catheter has been removed and patient is voiding without difficulty. Patient is ambulating well. She states she has not yet passed gas. Patient is tolerating a clear liquid diet without nausea or vomiting. Patient denies headache, chest pain, cough, shortness of breath, leg pain, abdominal pain, or heavy bleeding. Patient reports: appetite normal, voiding normally, pain well controlled, ambulating normally, no flatus : doing well, in NICU Objective - Vital Signs Latest vital signs: Vital Signs Temp Pulse Resp BP BP Pulse Ox 06/13/18 06:00 18 06/13/18 04:15 98.4 F 86 18 138/76 06/13/18 04:00 18 06/13/18 02:00 18 06/13/18 00:00 98.2 F 69 18 132/71 06/12/18 22:00 18 06/12/18 18:10 98.4 F 65 18 127/63 06/12/18 17:30 97.7 F 79 14 118/61 99 06/12/18 17:15 57 L 20 112/64 97 06/12/18 17:00 78 16 117/62 97 06/12/18 16:45 65 17 103/57 95 06/12/18 16:40 61 14 110/62 97 06/12/18 16:35 60 14 111/52 99 06/12/18 16:30 97.9 F 69 17 112/49 98 06/12/18 13:12 93 H 98 06/12/18 13:07 94 H 99 06/12/18 13:02 101 H 99 06/12/18 12:57 92 H 99 06/12/18 12:52 93 H 98 06/12/18 12:47 84 97 06/12/18 12:42 103 H 98 06/12/18 12:37 117 H 99 06/12/18 12:32 101 H 97 06/12/18 12:27 97 H 99 06/12/18 12:22 95 H 99 06/12/18 12:17 98 H 98 06/12/18 12:16 101 H 135/77 06/12/18 12:15 98.6 F 105 H 20 98 06/12/18 12:12 115 H 98 Intake and Output 06/12/18 06/13/18 06/13/18 23:59 07:59 15:59 Intake Total 700 360 Output Total 500 700 Balance 200 -340 Intake: IV 700 Oral 360 Output: Urine 500 700 Indwelling Catheter 400 700 Other: Total, Intake Amount 240 Total, Output Amount 400 600 - Exam Cardiovascular: Present: Regular rate, Normal S1, Normal S2 Abdomen: Present: normal appearance, soft, normal bowel sounds. Absent: distention, tenderness, rigidity Uterus: Present: normal, firm, fundal height below umbilicus. Absent: bogginess , tenderness Extremities: Present: normal. Absent: tenderness, edema Incision: Present: normal, dry, dressed - Labs Labs: Abnormal lab results 06/12/18 06/12/18 06/13/18 Range/Units 12:00 12:00 04:08 Hgb 9.3 L 7.8 L (10.1-14.3) gm/dl Hct 29.5 L 25.5 L (30.3-42.9) % MCV 68 L (79-97) fl MCH 21 L (28-32) pg RDW 18.9 H (13.2-15.2) % Seg Neutrophils % 81.4 H (40.0-70.0) % Seg Neutrophils # 8.6 H (1.8-7.7) K/mm3 Crossmatch See Detail
[2018-06-13] MEDS: PERCOCET 5/325 PO PRN ×2 (13:00→18:13)
[2018-06-13] MEDS: MYLICON PO PRN (22:55)
[2018-06-13] MEDS: MOTRIN PO PRN (22:56)
[2018-06-14] MEDS: PERCOCET 5/325 PO PRN ×3 (01:50→21:33)
[2018-06-14] MEDS: MOTRIN PO PRN ×2 (05:59→13:53)
[2018-06-14] MEDS: MYLICON PO PRN (06:00)
[2018-06-14] MEDS: FEOSOL PO SCH ×3 (13:52→21:33)
--- NOTE | 2018-06-14 14:57 | Progress Note ---
Assessment and Plan A: /postop day 2 S/P low transverse section. Anemia. P: Continue ambulation. Continue iron supplementation. Subjective - Subjective Date of service: 06/14/18 Principal diagnosis: /postop day 2 S/P low transverse section Interval history: /postop day 2 S/P low transverse section. Patient is doing well. She is voiding without difficulty. Patient is ambulating well. She has passed gas. Patient is tolerating a regular diet without nausea or vomiting. Patient reports small amount of lochia. Patient denies headache, chest pain, cough, shortness of breath, leg pain, abdominal pain, heavy bleeding, or any other problems. Patient reports: appetite normal, voiding normally, pain well controlled, flatus , ambulating normally [place]: doing well Objective - Vital Signs Latest vital signs: Vital Signs Temp Pulse Resp BP 06/14/18 13:53 20 06/14/18 13:51 20 06/14/18 08:16 98.3 F 71 18 131/74 06/14/18 05:59 18 06/14/18 01:50 18 06/14/18 01:34 97.9 F 79 18 131/76 06/13/18 22:56 18 06/13/18 16:44 98.0 F 84 18 135/69 Intake and Output 06/13/18 06/14/18 06/14/18 23:59 07:59 15:59 Intake Total 120 480 360 Balance 120 480 360 Intake: Oral 120 360 Intake, Free Water 480 Other: Total, Intake Amount 120 360 # Voids Indwelling Catheter 2 Void 2 1 - Exam Cardiovascular: Present: Regular rate, Normal S1, Normal S2 Lungs: Present: Clear to auscultation Abdomen: Present: normal appearance, soft, normal bowel sounds. Absent: distention, tenderness, guarding, rigidity Uterus: Present: normal, firm, fundal height below umbilicus. Absent: bogginess , tenderness Extremities: Present: normal. Absent: tenderness, edema Incision: Present: normal, dry, intact
[2018-06-15] MEDS: MOTRIN PO PRN ×2 (00:56→19:32)
[2018-06-15] MEDS: PERCOCET 5/325 PO PRN ×3 (07:50→22:14)
[2018-06-15] MEDS: FEOSOL PO SCH ×2 (10:00→22:14)
--- NOTE | 2018-06-15 13:56 | Progress Note ---
Assessment and Plan - Patient Problems (1) S/P repeat low transverse Current Visit: Yes Status: Acute Plan to address problem: POD 3 - stable Discharge to home 06/16/18 Follow up at [facility] in 1 week for incision check (2) History of bilateral tubal ligation Current Visit: Yes Status: Acute Plan to address problem: s/p BTL (3) Anemia in puerperium, baby delivered during current episode of care Current Visit: Yes Status: Acute Plan to address problem: Asymptomatic Continue iron therapy Subjective - Subjective Date of service: 06/15/18 Principal diagnosis: POD #3, s/p Repeat LTCS w/BTL Patient reports: appetite normal, voiding normally, pain well controlled, flatus , ambulating normally, no bowel movement [place]: doing well, in NICU Objective - Vital Signs Latest vital signs: Vital Signs Temp Pulse Resp BP 06/15/18 08:00 98.5 F 92 H 18 132/70 06/15/18 07:50 20 06/15/18 00:00 98.0 F 68 20 130/68 06/14/18 16:04 98.5 F 72 18 133/71 06/14/18 13:53 20 Intake and Output 06/14/18 06/15/18 06/15/18 23:59 07:59 15:59 Intake Total 360 Balance 360 Intake: Oral 360 Other: Total, Intake Amount 240 # Voids Void 1 1 - Exam Cardiovascular: Present: Regular rate Lungs: Present: Clear to auscultation, Normal air movement Abdomen: Present: normal appearance, soft Vulva: both: normal Uterus: Present: normal, firm, fundal height below umbilicus Incision: Present: normal, dry, intact - Labs Labs: Abnormal lab results 06/12/18 Range/Units 12:00 Crossmatch See Detail
--- NOTE | 2018-06-15 13:59 | Discharge Summary ---
Providers - Providers Date of Admission: 06/12/18 11:34 Date of discharge: 06/16/18 Attending physician: LESLI CHO MD Primary care physician: LESLI CHO MD Hospitalization Reason for admission: IUP - , section, other (Twin IUP) Delivery: Procedure: bilateral tubal ligation, repeat low transverse Episiotomy: none Laceration: none Incision: normal, dry, intact Other procedures: none complications: none Discharge diagnosis: IUP at term delivered baby: twins Hospital course: Uncomplicated Condition at discharge: Stable Disposition: DC-01 TO HOME OR SELFCARE - Discharge Diagnoses (1) S/P repeat low transverse Status: Acute (2) History of bilateral tubal ligation Status: Acute (3) Anemia in puerperium, baby delivered during current episode of care Status: Acute Comment: Asymptomatic Continue iron therapy Plan - Discharge Medications Prescriptions: Ferrous Sulfate [Feosol 325 MG tab] 325 mg PO BID 30 Days #60 tablet Ibuprofen 800 mg PO Q6H 10 Days #30 tablet MDD 3200mg oxyCODONE /ACETAMINOPHEN [Percocet 5/325] 1 tab PO Q4HR PRN 14 Days #30 tab PRN Reason: Pain, Moderate (4-6) - Provider Discharge Summary Activity: routine, no sex for 6 weeks, no heavy lifting 4 weeks, no strenuous exercise Diet: routine Instructions: routine Additional instructions: [] Smoking cessation referral if applicable(refer to patient education folder for contact #) [] Refer to [facility] Booklet Call your doctor immediately for: * Fever > 100.5 * Heavy vaginal bleeding ( >1 pad per hour) * Severe persistent headache * Shortness of breath * Reddened, hot, painful area to leg or breast * Drainage or odor from incision. * Keep incision clean and dry at all times and follow doctor's instructions regarding bathing/showering - Follow up plan Follow up: LESLI CHO MD [Primary Care Provider] - 7 Days (Follow up at [facility] in 1 week for incision check)
[2018-06-16] MEDS: PERCOCET 5/325 PO PRN (07:46)
[2018-06-16 08:29] VITALS: BP 136/85
[2018-06-16] MEDS: FEOSOL PO SCH ×2 (10:36→10:59)
[2018-06-16] MEDS: MOTRIN PO PRN (13:20)
== END 2018-06-16 13:30 | disposition home or self-care (01) | DRG 765 ==
LOC: APU 11:34 → OB 19:54
PROVIDERS: ADMIT Obstetrics & Gynecology; ATTEND Obstetrics & Gynecology
PROC: 10D00Z1 Extraction of Products of Conception, Low, Open Approach (ICD-10-PCS; principal; 2018-06-12)
PROC: 0UL60ZZ Occlusion of Left Fallopian Tube, Open Approach (ICD-10-PCS; 2018-06-12)
PROC: 0UT50ZZ Resection of Right Fallopian Tube, Open Approach (ICD-10-PCS; 2018-06-12)
DX: O30.043 Twin pregnancy, dichorionic/diamniotic, third trimester (principal); O60.14X2 Preterm labor third trimester with preterm delivery third trimester, fetus 2; O60.14X1 Preterm labor third trimester with preterm delivery third trimester, fetus 1; Z68.42 Body mass index [BMI] 45.0-49.9, adult; O10.92 Unspecified pre-existing hypertension complicating childbirth; O99.354 Diseases of the nervous system complicating childbirth; E66.01 Morbid (severe) obesity due to excess calories; Z71.3 Dietary counseling and surveillance; O36.5932 Maternal care for other known or suspected poor fetal growth, third trimester, fetus 2; O99.214 Obesity complicating childbirth; G35 Multiple sclerosis; D64.9 Anemia, unspecified; O32.9XX2 Maternal care for malpresentation of fetus, unspecified, fetus 2; Z30.2 Encounter for sterilization; O90.81 Anemia of the puerperium; Z3A.35 35 weeks gestation of pregnancy; Z37.2 Twins, both liveborn; O34.211 Maternal care for low transverse scar from previous cesarean delivery
CPT/HCPCS: 36415; 85014; 85018; 85025; 86850; 86900; 86901; 86920; 88302; 88307; 99211; C1765; G0463; J0690; J1170; J1885; J2270; J2370; J2405; J2590; J2765; J7120

== ENCOUNTER 2019-06-19 15:04 | Emergency (ER) | payer MEDICAID ==
--- NOTE | 2019-06-19 16:36 | Event Note ---
ED Screening Note Date of service: 06/19/19 Time: 16:33 ED Screening Note: Report vaginal discharge that fishy odor. BTL. She reports she thinks its BV because she had before. Denies abdominal or urinary symptoms. No fever or chills. Irritation during irritation This initial assessment/diagnostic orders/clinical plan/treatment(s) is/are subject to change based on patients health status, clinical progression and re- assessment by fellow clinical providers in the ED. Further treatment and workup at subsequent clinical providers discretion. Patient/guardian urged not to elope from the ED as their condition may be serious if not clinically assessed and managed. Initial orders include:
[2019-06-19 17:17] LABS: Bacteria,Urine 1+ /HPF (Negative); Bilirubin,Urine NEG (Negative); Blood,Urine MOD (Negative); Color,Urine Yellow (Yellow); Mucus,Urine 3+ /HPF; Protein,Urine <15 mg/dL mg/dL (Negative)
[2019-06-19 17:23] LABS: HCG Qualitative,Urine Negative (Negative)
--- NOTE | 2019-06-19 18:58 | Emergency Department Report ---
ED Female HPI - General Chief complaint: Urogenital-Female Stated complaint: DISCHARGE VAGINAL/IRRITATION Time Seen by Provider: 06/19/19 16:32 Source: patient Mode of arrival: Ambulatory Limitations: No Limitations - History of Present Illness Initial comments: 33-year-old female with brown vaginal discharge 3 days. Patient reports vaginal "irritation" with intercourse. She denies dysuria, vaginal bleeding, urinary frequency. MD Complaint: vaginal discharge -: days(s) (3) Severity: mild Quality: other ("irritation") Consistency: constant Improves with: none Worsens with: intercourse Are you Now?: No Associated Symptoms: vaginal discharge. denies: vaginal bleeding, abdominal pain, fever/chills, dysuria - Related Data Sexually active: Yes Home Medications Medication Instructions Recorded Confirmed Last Taken Pnv No.95/Ferrous Fum/Folic AC 1 each PO DAILY 05/22/18 06/12/18 06/02/18 [Prenavite Tablet] Previous Rx's Medication Instructions Recorded Last Taken Type Ferrous Sulfate [Feosol 325 MG tab] 325 mg PO BID 30 Days #60 tablet 06/12/18 Unknown Rx Ibuprofen [Ibuprofen 800] 800 mg PO Q6H 10 Days #30 tablet 06/12/18 Unknown Rx MDD 3200mg oxyCODONE /ACETAMINOPHEN [Percocet 1 tab PO Q4HR PRN 14 Days #30 tab 06/12/18 Unknown Rx 5/325] metroNIDAZOLE [Flagyl] 500 mg PO Q12HR #14 tab 06/19/19 Unknown Rx Allergies Allergy/AdvReac Type Severity Reaction Status Date / Time No Known Allergies Allergy Verified 01/10/18 15:52 ED Review of Systems ROS: Stated complaint: DISCHARGE VAGINAL/IRRITATION Other details as noted in HPI Comment: All other systems reviewed and negative Constitutional: denies: chills, fever Gastrointestinal: denies: abdominal pain Genitourinary: discharge. denies: dysuria, frequency ED Past Medical Hx - Past Medical History Hx Hypertension: No Hx Diabetes: No Hx Deep Vein Thrombosis: No Hx Renal Disease: No Hx Sickle Cell Disease: No Hx Seizures: No Hx Asthma: No Hx HIV: No Additional medical history: OBESITY - Surgical History Additional Surgical History: X 2 - Social History Smoking Status: Current Some Day Smoker Substance Use Type: Alcohol - Medications Home Medications: Home Medications Medication Instructions Recorded Confirmed Last Taken Type Pnv No.95/Ferrous Fum/Folic AC 1 each PO DAILY 05/22/18 06/12/18 06/02/18 History [Prenavite Tablet] Ferrous Sulfate [Feosol 325 MG tab] 325 mg PO BID 30 Days #60 tablet 06/12/18 Unknown Rx Ibuprofen [Ibuprofen 800] 800 mg PO Q6H 10 Days #30 tablet 06/12/18 Unknown Rx MDD 3200mg oxyCODONE /ACETAMINOPHEN [Percocet 1 tab PO Q4HR PRN 14 Days #30 tab 06/12/18 Unknown Rx 5/325] metroNIDAZOLE [Flagyl] 500 mg PO Q12HR #14 tab 06/19/19 Unknown Rx ED Physical Exam - General Limitations: No Limitations General appearance: alert, in no apparent distress, obese - Head Head exam: Present: atraumatic, normocephalic - Eye Eye exam: Present: normal appearance - ENT ENT exam: Present: mucous membranes moist - Neck Neck exam: Present: normal inspection - Respiratory Respiratory exam: Present: normal lung sounds bilaterally. Absent: respiratory distress - Cardiovascular Cardiovascular Exam: Present: regular rate, normal rhythm - GI/Abdominal GI/Abdominal exam: Present: soft. Absent: distended, tenderness - External exam: Present: normal external exam Speculum exam: Present: vaginal discharge (yellowish-brown, foul smelling), cervical discharge. Absent: vaginal bleeding Bi-manual exam: Present: normal bi-manual exam. Absent: cervical motion tendernes - Extremities Exam Extremities exam: Present: normal inspection - Neurological Exam Neurological exam: Present: alert, oriented X3 - Psychiatric Psychiatric exam: Present: normal affect, normal mood - Skin Skin exam: Present: warm, dry, intact, normal color ED Course Vital Signs 06/19/19 06/19/19 16:32 21:33 Temperature 98.9 F 98.6 F Pulse Rate 70 72 Respiratory 18 20 Rate Blood Pressure 158/99 Blood Pressure 141/89 [Left] O2 Sat by Pulse 100 100 Oximetry ED Medical Decision Making - Differential Diagnosis GC, chlamydia, trichomonas, uti, PID, herpes Critical care attestation.: If time is entered above; I have spent that time in minutes in the direct care of this critically ill patient, excluding procedure time. ED Disposition Clinical Impression: Cervicitis, Bacterial vaginosis, Trichomonas vaginitis Disposition: TO HOME OR SELFCARE Is pt being admited?: No Condition: Stable Instructions: Bacterial Vaginosis (ED), Cervicitis (ED), Trichomoniasis (ED) Prescriptions: metroNIDAZOLE [Flagyl] 500 mg PO Q12HR #14 tab Referrals: PRIMARY CARE, [Primary Care Provider] - 3-5 Days RCIHARD COSTA MD [Staff Physician] - 3-5 Days [facility] [Outside] - 3-5 Days Forms: STI Treatment and Prevention Time of Disposition: 20:25
[2019-06-19] MEDS ORDERED: AZITHROMYCIN 250 MG TAB PO ONE (20:17)
[2019-06-19] MEDS ORDERED: LIDOCAINE-MPF (1%) 10 MG/1 ML VIAL 5 ML INFILTRATI ONE (20:17)
[2019-06-19 21:34] VITALS: BP 141/89
== END 2019-06-19 21:30 | disposition home or self-care (01) ==
LOC: ED 15:04
DX: N72 Inflammatory disease of cervix uteri (principal); N76.0 Acute vaginitis; A59.01 Trichomonal vulvovaginitis; F17.200 Nicotine dependence, unspecified, uncomplicated
CPT/HCPCS: 81001; 81025; 87086; 87210; 87591; 96372; 99283; J0696

== ENCOUNTER 2020-05-02 11:05 | Emergency (ER) | payer OTHER, MEDICAID ==
[2020-05-02 12:23] VITALS: BP 147/91
--- NOTE | 2020-05-02 12:26 | Event Note ---
ED Screening Note Date of service: 05/02/20 Time: 12:25 ED Screening Note: Patient complains of right index finger pain and swelling x 1 week On exam, patient unable to flex the finger and has mild to moderate swelling at the tip of the finger This initial assessment/diagnostic orders/clinical plan/treatment(s) is/are subject to change based on patients health status, clinical progression and re- assessment by fellow clinical providers in the ED. Further treatment and workup at subsequent clinical providers discretion. Patient/guardian urged not to elope from the ED as their condition may be serious if not clinically assessed and managed. Initial orders include: X-ray
--- NOTE | 2020-05-02 12:52 | XRay Report ---
RIGHT INDEX FINGER 3 VIEWS INDICATION / CLINICAL INFORMATION: Right index finger DIP joint injury. COMPARISON: None available. FINDINGS: BONES and JOINT(S): No acute fracture or dislocation is noted along the index finger. There is a ques tionable fracture through the base of the distal phalanx of the thumb that is only seen on one view. No significant arthritis. SOFT TISSUES: No significant abnormality. ADDITIONAL FINDINGS: None. IMPRESSION: 1. No acute radiographic abnormality of the right index finger. 2. Questionable right thumb fracture. If there is continued clinical concern, a right thumb series is recommended for further evaluation. Signer Name: Matias Machado MD Signed: 05/02/2020 12:47 PM Workstation Name: [id number]
--- NOTE | 2020-05-02 14:21 | Emergency Department Report ---
ED Extremity Problem HPI - General Chief complaint: Extremity Injury, Upper Stated complaint: FINGER PAIN Time Seen by Provider: 05/02/20 12:23 Source: patient Mode of arrival: Ambulatory Limitations: No Limitations - History of Present Illness Initial comments: This is a 34-year-old female who presents the ED complaining of right index finger pain that began last week. Patient states that while she was at work at [employer] lifting some boxes she injured her finger. Patient states since then she has had pain and some redness to the fingertip. Patient denies any laceration no open wounds after the incident. Patient states she got worried so she came in the ER to get evaluated. MD Complaint: extremity pain - Related Data Home Medications Medication Instructions Recorded Confirmed Last Taken Pnv No.95/Ferrous Fum/Folic AC 1 each PO DAILY 05/22/18 06/12/18 06/02/18 [Prenavite Tablet] Previous Rx's Medication Instructions Recorded Last Taken Type Ferrous Sulfate [Feosol 325 MG tab] 325 mg PO BID 30 Days #60 tablet 06/12/18 Unknown Rx Ibuprofen [Ibuprofen 800] 800 mg PO Q6H 10 Days #30 tablet 06/12/18 Unknown Rx MDD 3200mg oxyCODONE /ACETAMINOPHEN [Percocet 1 tab PO Q4HR PRN 14 Days #30 tab 06/12/18 Unknown Rx 5/325] metroNIDAZOLE [Flagyl] 500 mg PO Q12HR #14 tab 06/19/19 Unknown Rx Ibuprofen [Motrin 800 MG tab] 800 mg PO Q8HR PRN #30 tablet 05/02/20 Unknown Rx cephALEXin [Keflex] 500 mg PO Q12HR #14 cap 05/02/20 Unknown Rx Allergies Allergy/AdvReac Type Severity Reaction Status Date / Time No Known Allergies Allergy Verified 01/10/18 15:52 ED Review of Systems ROS: Stated complaint: FINGER PAIN Other details as noted in HPI Comment: All other systems reviewed and negative ED Past Medical Hx - Past Medical History Hx Hypertension: No Hx Diabetes: No Hx Deep Vein Thrombosis: No Hx Renal Disease: No Hx Sickle Cell Disease: No Hx Seizures: No Hx Asthma: No Hx HIV: No Additional medical history: OBESITY - Surgical History Additional Surgical History: X 2 - Social History Smoking Status: Never Smoker Substance Use Type: None - Medications Home Medications: Home Medications Medication Instructions Recorded Confirmed Last Taken Type Pnv No.95/Ferrous Fum/Folic AC 1 each PO DAILY 05/22/18 06/12/18 06/02/18 History [Prenavite Tablet] Ferrous Sulfate [Feosol 325 MG tab] 325 mg PO BID 30 Days #60 tablet 06/12/18 Unknown Rx Ibuprofen [Ibuprofen 800] 800 mg PO Q6H 10 Days #30 tablet 06/12/18 Unknown Rx MDD 3200mg oxyCODONE /ACETAMINOPHEN [Percocet 1 tab PO Q4HR PRN 14 Days #30 tab 06/12/18 Unknown Rx 5/325] metroNIDAZOLE [Flagyl] 500 mg PO Q12HR #14 tab 06/19/19 Unknown Rx Ibuprofen [Motrin 800 MG tab] 800 mg PO Q8HR PRN #30 tablet 05/02/20 Unknown Rx cephALEXin [Keflex] 500 mg PO Q12HR #14 cap 05/02/20 Unknown Rx ED Physical Exam - General Limitations: No Limitations General appearance: alert, in no apparent distress - Head Head exam: Present: atraumatic, normocephalic - Eye Eye exam: Present: normal appearance - ENT ENT exam: Present: mucous membranes moist - Neck Neck exam: Present: normal inspection - Respiratory Respiratory exam: Present: normal lung sounds bilaterally. Absent: respiratory distress - Cardiovascular Cardiovascular Exam: Present: regular rate, normal rhythm. Absent: systolic murmur, diastolic murmur, rubs, gallop - GI/Abdominal GI/Abdominal exam: Present: soft, normal bowel sounds - Extremities Exam Extremities exam: Present: normal inspection, full ROM, tenderness (To palpation of the right index fingertip, no broken skin, nail is intact). Absent: joint swelling - Back Exam Back exam: Present: normal inspection - Neurological Exam Neurological exam: Present: alert, oriented X3 - Psychiatric Psychiatric exam: Present: normal affect, normal mood - Skin Skin exam: Present: warm, dry, intact, normal color. Absent: rash ED Course Vital Signs 05/02/20 11:37 Temperature 98.3 F Pulse Rate 79 Respiratory 18 Rate Blood Pressure 147/91 O2 Sat by Pulse 100 Oximetry ED Medical Decision Making - Radiology Data Radiology results: report reviewed, image reviewed Fluoro Time In Minutes: RIGHT INDEX FINGER 3 VIEWS INDICATION / CLINICAL INFORMATION: Right index finger DIP joint injury. COMPARISON: None available. FINDINGS: BONES and JOINT(S): No acute fracture or dislocation is noted along the index finger. There is a questionable fracture through the base of the distal phalanx of the thumb that is only seen on one view. No significant arthritis. SOFT TISSUES: No significant abnormality. ADDITIONAL FINDINGS: None. IMPRESSION: 1. No acute radiographic abnormality of the right index finger. 2. Questionable right thumb fracture. If there is continued clinical concern, a right thumb series is recommended for further evaluation. Signer Name: Matias Machado MD Signed: 05/02/2020 12:47 PM Workstation Name: [id number] Transcribed By: NICOLAS Dictated By: Matias Machado MD Electronically Authenticated By: Matias Machado MD Signed Date/Time: 05/02/20 1247 - Medical Decision Making This 34-year-old female who presents the ED with finger pain. X-ray shows no acute findings. Discussed with patient to follow-up with primary care physician. Vital signs are normal patient is in no acute distress. Critical care attestation.: If time is entered above; I have spent that time in minutes in the direct care of this critically ill patient, excluding procedure time. ED Disposition Clinical Impression: Finger pain, right, Cellulitis of finger of right hand Disposition: DC-01 TO HOME OR SELFCARE Is pt being admited?: No Does the pt Need Aspirin: No Condition: Stable Instructions: Finger Sprain (ED), Arthralgia (ED) Additional Instructions: Make sure to follow up with the primary care physician as discussed. Take all your medications as you've been prescribed. If you have any worsening symptoms or develop new symptoms please return to ED immediately. Prescriptions: cephALEXin [Keflex] 500 mg PO Q12HR #14 cap Ibuprofen [Motrin 800 MG tab] 800 mg PO Q8HR PRN #30 tablet PRN Reason: Pain Referrals: [facility] [Outside] - 3-5 Days [facility] [Outside] - 3-5 Days Forms: Work/School Release Form(ED) Time of Disposition: 14:35
== END 2020-05-02 15:04 | disposition home or self-care (01) ==
LOC: ED 11:05
DX: L03.011 Cellulitis of right finger (principal); M79.644 Pain in right finger(s); Z98.890 Other specified postprocedural states; Z79.1 Long term (current) use of non-steroidal anti-inflammatories (NSAID); Z79.899 Other long term (current) drug therapy

== ENCOUNTER 2020-05-10 08:17 | Emergency (ER) | payer MEDICAID, OTHER ==
--- NOTE | 2020-05-10 08:51 | Emergency Department Report ---
ED General Adult HPI - General Chief complaint: Extremity Injury, Upper Stated complaint: INFECTED FINGER Time Seen by Provider: 05/10/20 08:47 Source: patient Mode of arrival: Ambulatory Limitations: No Limitations - History of Present Illness Initial comments: 34-year-old -[place] female patient presents with complaints of worsening right finger pain and swelling for the past week. Patient was seen here 05/02/2020 after a box fell on her hand at work. At that time, she had pain and swelling to the tip of the right index finger and was having difficulty flexing the finger. X-ray at that time was negative for any fracture and patient was discharged home on Keflex for possible cellulitis. Patient states she was compliant and completed the Keflex prescription, however the swelling and pain have worsened and now have moved down her finger. She denies any fever/chills/sweats. She rates her pain as a 10/10 in severity and describes it as a throbbing aching pain. She reports she is still having difficulty bending the finger. She denies any prior medical history or penetrating injuries to the finger. - Related Data Home Medications Medication Instructions Recorded Confirmed Last Taken Pnv No.95/Ferrous Fum/Folic AC 1 each PO DAILY 05/22/18 06/12/18 06/02/18 [Prenavite Tablet] Previous Rx's Medication Instructions Recorded Last Taken Type Ferrous Sulfate [Feosol 325 MG tab] 325 mg PO BID 30 Days #60 tablet 06/12/18 Unknown Rx Ibuprofen [Ibuprofen 800] 800 mg PO Q6H 10 Days #30 tablet 06/12/18 Unknown Rx MDD 3200mg oxyCODONE /ACETAMINOPHEN [Percocet 1 tab PO Q4HR PRN 14 Days #30 tab 06/12/18 Unknown Rx 5/325] metroNIDAZOLE [Flagyl] 500 mg PO Q12HR #14 tab 06/19/19 Unknown Rx Ibuprofen [Motrin 800 MG tab] 800 mg PO Q8HR PRN #30 tablet 05/02/20 Unknown Rx cephALEXin [Keflex] 500 mg PO Q12HR #14 cap 05/02/20 Unknown Rx Acetaminophen/Codeine [Tylenol 1 tab PO Q6H PRN #12 tab 05/10/20 Unknown Rx /Codeine # 3 tab] Clindamycin [Clindamycin CAP] 300 mg PO Q6H 10 Days #40 capsule 05/10/20 Unknown Rx Mupirocin [Bactroban 2% OINT] 1 applic TP TID 10 Days #1 tube 05/10/20 Unknown Rx Allergies Allergy/AdvReac Type Severity Reaction Status Date / Time No Known Allergies Allergy Verified 01/10/18 15:52 ED Review of Systems ROS: Stated complaint: INFECTED FINGER Other details as noted in HPI ED Past Medical Hx - Past Medical History Hx Hypertension: No Hx Diabetes: No Hx Deep Vein Thrombosis: No Hx Renal Disease: No Hx Sickle Cell Disease: No Hx Seizures: No Hx Asthma: No Hx HIV: No Additional medical history: OBESITY - Surgical History Additional Surgical History: X 2 - Social History Smoking Status: Never Smoker - Medications Home Medications: Home Medications Medication Instructions Recorded Confirmed Last Taken Type Pnv No.95/Ferrous Fum/Folic AC 1 each PO DAILY 05/22/18 06/12/18 06/02/18 History [Prenavite Tablet] Ferrous Sulfate [Feosol 325 MG tab] 325 mg PO BID 30 Days #60 tablet 06/12/18 Unknown Rx Ibuprofen [Ibuprofen 800] 800 mg PO Q6H 10 Days #30 tablet 06/12/18 Unknown Rx MDD 3200mg oxyCODONE /ACETAMINOPHEN [Percocet 1 tab PO Q4HR PRN 14 Days #30 tab 06/12/18 Unknown Rx 5/325] metroNIDAZOLE [Flagyl] 500 mg PO Q12HR #14 tab 06/19/19 Unknown Rx Ibuprofen [Motrin 800 MG tab] 800 mg PO Q8HR PRN #30 tablet 05/02/20 Unknown Rx cephALEXin [Keflex] 500 mg PO Q12HR #14 cap 05/02/20 Unknown Rx Acetaminophen/Codeine [Tylenol 1 tab PO Q6H PRN #12 tab 05/10/20 Unknown Rx /Codeine # 3 tab] Clindamycin [Clindamycin CAP] 300 mg PO Q6H 10 Days #40 capsule 05/10/20 Unknown Rx Mupirocin [Bactroban 2% OINT] 1 applic TP TID 10 Days #1 tube 05/10/20 Unknown Rx ED Physical Exam - General Limitations: No Limitations General appearance: alert, in no apparent distress - Head Head exam: Present: atraumatic, normocephalic - Eye Eye exam: Present: normal appearance. Absent: scleral icterus - Neck Neck exam: Present: normal inspection - Respiratory Respiratory exam: Absent: respiratory distress - Cardiovascular Cardiovascular Exam: Present: regular rate, normal rhythm - Extremities Exam Extremities exam: Present: other (Is swelling noted to the entire right index finger with moderate to significant tenderness to palpation from the PIP to the tip of the finger. Warmth and mild erythema is noted. Patient unable to flex at the DIP joint. There is significant decreased flexion of the PIP joint and patient has full flexion of the MCP joint. She also has some difficulty with extension of the index finger. Swelling appears to be more significant at the palmar tip of the finger, however no fluctuance or purulent pocket is noted) - Back Exam Back exam: Present: full ROM - Neurological Exam Neurological exam: Present: alert, oriented X3 - Psychiatric Psychiatric exam: Present: normal affect, normal mood ED Course Vital Signs 05/10/20 05/10/20 08:31 12:00 Temperature 98.3 F Pulse Rate 79 Respiratory 18 16 Rate Blood Pressure 148/90 O2 Sat by Pulse 100 Oximetry - I & D Finger Type of Procedure: Simple Site: Right index finger Blade Size: 11 I & D Procedure: betadine prep, sterile drapes applied, sterile dressing applied Progress: Area was anesthetized using 1% lidocaine via a digital block. Minimal bleeding occurred. Purulent drainage was obtained from wound and sent for culture. Wound was irrigated thoroughly with 500 cc of saline and Betadine. No decreased range of motion noted post procedure. Patient tolerated procedure well ED Medical Decision Making - Lab Data Result diagrams: 05/10/20 10:45 05/10/20 10:45 Lab Results 05/10/20 05/10/20 05/10/20 Range/Units 10:45 10:45 10:45 WBC 10.2 (4.5-11.0) K/mm3 RBC 4.81 (3.65-5.03) M/mm3 Hgb 10.4 (10.1-14.3) gm/dl Hct 33.1 (30.3-42.9) % MCV 69 L (79-97) fl MCH 22 L (28-32) pg MCHC 31 (30-34) % RDW 19.1 H (13.2-15.2) % Plt Count 389 (140-440) K/mm3 Lymph % (Auto) 12.7 L (13.4-35.0) % [place] % (Auto) 5.4 (0.0-7.3) % Eos % (Auto) 2.2 (0.0-4.3) % Baso % (Auto) 0.7 (0.0-1.8) % Lymph # 1.3 (1.2-5.4) K/mm3 [place] # 0.5 (0.0-0.8) K/mm3 Eos # 0.2 (0.0-0.4) K/mm3 Baso # 0.1 (0.0-0.1) K/mm3 Seg Neutrophils % 79.0 H (40.0-70.0) % Seg Neutrophils # 8.0 H (1.8-7.7) K/mm3 ESR 12 (0-20) mm/Hr PT 13.4 (12.2-14.9) Sec. INR 1.00 (0.87-1.13) Sodium 139 (137-145) mmol/L Potassium 4.3 (3.6-5.0) mmol/L Chloride 101.8 (98-107) mmol/L Carbon Dioxide 26 (22-30) mmol/L Anion Gap 16 mmol/L BUN 12 (7-17) mg/dL Creatinine 0.6 (0.6-1.2) mg/dL Estimated GFR > 60 ml/min BUN/Creatinine Ratio 20 % Glucose 83 (65-100) mg/dL Lactic Acid (0.7-2.0) mmol/L Calcium 9.0 (8.4-10.2) mg/dL Magnesium 2.10 (1.7-2.3) mg/dL Total Creatine Kinase 112 (30-135) units/L C-Reactive Protein 1.10 (0.00-1.30) mg/dL HCG, Quant (0-4) mIU/mL 05/10/20 05/10/20 Range/Units 10:45 14:20 WBC (4.5-11.0) K/mm3 RBC (3.65-5.03) M/mm3 Hgb (10.1-14.3) gm/dl Hct (30.3-42.9) % MCV (79-97) fl MCH (28-32) pg MCHC (30-34) % RDW (13.2-15.2) % Plt Count (140-440) K/mm3 Lymph % (Auto) (13.4-35.0) % [place] % (Auto) (0.0-7.3) % Eos % (Auto) (0.0-4.3) % Baso % (Auto) (0.0-1.8) % Lymph # (1.2-5.4) K/mm3 [place] # (0.0-0.8) K/mm3 Eos # (0.0-0.4) K/mm3 Baso # (0.0-0.1) K/mm3 Seg Neutrophils % (40.0-70.0) % Seg Neutrophils # (1.8-7.7) K/mm3 ESR (0-20) mm/Hr PT (12.2-14.9) Sec. INR (0.87-1.13) Sodium (137-145) mmol/L Potassium (3.6-5.0) mmol/L Chloride (98-107) mmol/L Carbon Dioxide (22-30) mmol/L Anion Gap mmol/L BUN (7-17) mg/dL Creatinine (0.6-1.2) mg/dL Estimated GFR ml/min BUN/Creatinine Ratio % Glucose (65-100) mg/dL Lactic Acid 0.50 L (0.7-2.0) mmol/L Calcium (8.4-10.2) mg/dL Magnesium (1.7-2.3) mg/dL Total Creatine Kinase (30-135) units/L C-Reactive Protein (0.00-1.30) mg/dL HCG, Quant < 2 (0-4) mIU/mL - Radiology Data Radiology results: report reviewed XR finger(s) 2+V RT INDICATION / CLINICAL INFORMATION: right pointer finger pain. COMPARISON: 05/02/2020 FINDINGS: No acute fracture. Normal alignment. Joint spaces are preserved. No destructive osseous lesion or suspicious periosteal reaction. Impression: 1.No fracture. - Medical Decision Making Patient here with worsening right finger pain and swelling since her visit 1 week ago here in the ED. Patient was placed on Keflex and states compliance. On exam, patient was noted to have difficulty with flexion of the DIP and PIP joints of the right index finger with significant swelling and erythema noted at the tip of the finger. Discussed patient in detail with Dr. Monsalve, who also saw and evaluated patient. Patient's presentation and symptoms were suspicious for flexor tenosynovitis. Hand surgery was consulted, Dr. Wallis of [facility]- physician was sent images of patient's finger. He stated patient's physical exam and imaging that was sent to him was not concerning for flexor tenos ynovitis; he recommended attempting incision and drainage of a felon and patient discharging home on clindamycin. Purulent drainage was obtained from the tip of the finger and was consistent with felon. Wound culture sent. Patient to follow-up with hand specialist within 24 hours. Her vitals are normal, she is well-appearing, and stable for discharge home. Critical care attestation.: If time is entered above; I have spent that time in minutes in the direct care of this critically ill patient, excluding procedure time. ED Disposition Clinical Impression: Felon of finger of right hand Disposition: DC-01 TO HOME OR SELFCARE Is pt being admited?: No Condition: Stable Instructions: Incision and Drainage (ED) Additional Instructions: Please follow-up with the hand surgeon within [address] Eros Wallis [place] [facility] [address] [place] [address] Dutch Dewey M.D. [address] [place] [address] [address] [place] [address] Prescriptions: Mupirocin [Bactroban 2% OINT] 1 applic TP TID 10 Days #1 tube Clindamycin [Clindamycin CAP] 300 mg PO Q6H 10 Days #40 capsule Acetaminophen/Codeine [Tylenol /Codeine # 3 tab] 1 tab PO Q6H PRN #12 tab PRN Reason: Pain , Severe (7-10) Referrals: PRIMARY CARE,MD [Primary Care Provider] - 3-5 Days
[2020-05-10] MEDS ORDERED: LIDOCAINE (1%) 10 MG/1 ML VIAL 20 ML MDV INFILTRATI ONE ×2 (10:23→15:48)
[2020-05-10] MEDS ORDERED: oxyCODONE /ACETAMINOPHEN 5-325MG TAB PO ONE (10:23)
--- NOTE | 2020-05-10 10:27 | Event Note ---
Date: 05/10/20 The patient is a 34-year-old female, [id number], states that she is not , who presents for follow-up for work-related injury sustained to her right pointer finger. A few days before the of this month, she sustained an accidental crush injury of the right pointer finger at work. 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 She was seen in this ER on the , and presumptively diagnosed with a possible cellulitis and started on Keflex. She presents to the ER today with pain to the pad of her right pointer finger, and holding her right pointer finger in partial flexion. No fevers or chills. On exam, the right pad of the finger is somewhat tender. FDP, FDS, extensors are intact. She does have minimal pain with extension of the right pointer finger. There is no tenderness to percussion on the volar aspect of the right finger, with the exception of the right finger pad. She is neurovascularly intact We clinically favor a felon, over flexor tenosynovitis. Her laboratory studies are unremarkable she is nontoxic, and she is noted to be playing/texting on a cellular phone. In addition, her case was discussed with a hand surgeon, who personally reviewed the images to the patient's anatomy, and advised initiation of clindamycin, drainage of the felon, and advised that his group could follow the patient up as an outpatient. Given that this is over 2 weeks, given the benign appearance of the patient, her ability to range the finger, I think this is unlikely to be a true flexor tenosynovitis, and plan for drainage, antibiotic change, splint, and outpatient follow-up will be reasonable.. Vital Signs 05/10/20 08:31 Temperature 98.3 F Pulse Rate 79 Respiratory 18 Rate Blood Pressure 148/90 O2 Sat by Pulse 100 Oximetry Print Report Referring Physician: STEPHANIE GRANDE Patient Name: KENRCIK WATERS Date of : 1985 Sex: Female Report Date: 2020-05-10 Report Status: Finalized Findings [facility] [address] [place] [address] XRay Report Signed Patient: KENRICK WATERS MR#: [id number] : 1985 Acct:[id number] Age/Sex: 34 / F ADM Date: 05/10/20 Loc: ED Attending Dr: Ordering Physician: STEPHANIE GRANDE MD Date of Service: 05/10/20 Procedure(s): XR finger(s) 2+V RT Accession Number(s): [id number] cc: STEPHANIE GRANDE MD Fluoro Time In Minutes: XR finger(s) 2+V RT INDICATION / CLINICAL INFORMATION: right pointer finger pain. COMPARISON: 05/02/2020 FINDINGS: No acute fracture. Normal alignment. Joint spaces are preserved. No destructive osseous lesion or suspicious periosteal reaction. Impression: 1.No fracture. Signer Name: Lenny Hemphill MD Signed: 05/10/2020 11:41 AM Workstation Name: [id number] Transcribed By: Dictated By: Lenny Hemphill MD Electronically Authenticated By: Lenny Hemphill MD Signed Date/Time: 05/10/20 1141 DD/ 1140 Labs 05/10/20 05/10/20 05/10/20 10:45 10:45 10:45 WBC 10.2 RBC 4.81 Hgb 10.4 Hct 33.1 MCV 69 L MCH 22 L MCHC 31 RDW 19.1 H Plt Count 389 Lymph % (Auto) 12.7 L [place] % (Auto) 5.4 Eos % (Auto) 2.2 Baso % (Auto) 0.7 Lymph # 1.3 [place] # 0.5 Eos # 0.2 Baso # 0.1 Seg Neutrophils % 79.0 H Seg Neutrophils # 8.0 H ESR 12 PT 13.4 INR 1.00 Sodium 139 Potassium 4.3 Chloride 101.8 Carbon Dioxide 26 Anion Gap 16 BUN 12 Creatinine 0.6 Estimated GFR > 60 BUN/Creatinine Ratio 20 Glucose 83 Calcium 9.0 Magnesium 2.10 Total Creatine Kinase 112 C-Reactive Protein 1.10 HCG, Quant 05/10/20 10:45 WBC RBC Hgb Hct MCV MCH MCHC RDW Plt Count Lymph % (Auto) [place] % (Auto) Eos % (Auto) Baso % (Auto) Lymph # [place] # Eos # Baso # Seg Neutrophils % Seg Neutrophils # ESR PT INR Sodium Potassium Chloride Carbon Dioxide Anion Gap BUN Creatinine Estimated GFR BUN/Creatinine Ratio Glucose Calcium Magnesium Total Creatine Kinase C-Reactive Protein HCG, Quant < 2
[2020-05-10] MEDS ORDERED: MORPHINE 4 MG/1 ML INJ IM ONE ×2 (11:36→14:09)
--- NOTE | 2020-05-10 11:45 | XRay Report ---
XR finger(s) 2+V RT INDICATION / CLINICAL INFORMATION: right pointer finger pain. COMPARISON: 05/02/2020 FINDINGS: No acute fracture. Normal alignment. Joint spaces are preserved. No destructive osseous lesion or s uspicious periosteal reaction. Impression: 1.No fracture. Signer Name: Lenny Hemphill MD Signed: 05/10/2020 11:41 AM Workstation Name: [id number]
[2020-05-10 11:55] LABS: Basophils # (Auto) 0.1 K/mm3 (0.0-0.1); Basophils % (Auto) 0.7 % (0.0-1.8); Eosinophils # (Auto) 0.2 K/mm3 (0.0-0.4); Eosinophils % (Auto) 2.2 % (0.0-4.3); Hematocrit 33.1 % (30.3-42.9); Hemoglobin 10.4 gm/dl (10.1-14.3); Lymphocytes # (Auto) 1.3 K/mm3 (1.2-5.4); Lymphocytes % (Auto) 12.7 % (13.4-35.0); Mean Corpuscular HGB Conc 31 % (30-34); Mean Corpuscular Volume 69 fl (79-97); Monocytes # (Auto) 0.5 K/mm3 (0.0-0.8); Monocytes % (Auto) 5.4 % (0.0-7.3); Platelet Count 389 K/mm3 (140-440); Red Blood Count 4.81 M/mm3 (3.65-5.03); Red Cell Distribution Width 19.1 % (13.2-15.2)
[2020-05-10 12:20] LABS: Erythrocyte Sedimentation Rate 12 mm/Hr (0-20)
[2020-05-10 13:19] LABS: Blood Urea Nitrogen 12 mg/dL (7-17); Hemolysis Index 1
[2020-05-10 13:45] LABS: BUN/Creatinine Ratio 20
[2020-05-10] MEDS ORDERED: CLINDAMYCIN 600 MG/50 mL 600 MG/50 ML BAG IV ONE (14:09)
[2020-05-10] MEDS ORDERED: SODIUM CHLORIDE 0.9% IRR 500 ML BOTTLE IR ONE (16:00)
[2020-05-10] MEDS ORDERED: SODIUM CHLORIDE IRRI 500 ML 500 ML IR ONE (16:12)
[2020-05-10] MEDS ORDERED: CLINDAMYCIN 150 MG CAP PO ONE (16:36)
[2020-05-10] MEDS ORDERED: BACITRACIN ZINC OINT 28.4 GM TP STA (16:40)
[2020-05-10 16:43] VITALS: BP 133/78
== END 2020-05-10 17:15 | disposition home or self-care (01) ==
LOC: ED 08:17
DX: L03.011 Cellulitis of right finger (principal); Z79.899 Other long term (current) drug therapy
CPT/HCPCS: 26010; 36415; 73140; 80048; 82140; 82550; 83735; 84702; 85025; 85610; 85652; 86140; 87040; 87076; 87116; 87186; 96365; 96372; 99284; J2270

== ENCOUNTER 2021-07-22 08:33 | Emergency (ER) | payer SELFPAY ==
[2021-07-22] MEDS ORDERED: HYDROcodone/Acetaminophen 7.5-325MG-15ML ORAL LIQD PO ONE (09:04)
--- NOTE | 2021-07-22 09:37 | XRay Report ---
Left hand-3 views INDICATION: pain with swelling L thumb. COMPARISON: None. IMPRESSION: No acute osseous abnormality. Soft tissues are normal. Normal alignment. 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 Signer Name: Jarek Caban MD Signed: 07/22/2021 9:32 AM Workstation Name: [id number]
[2021-07-22 09:55] VITALS: BP 158/106
--- NOTE | 2021-07-22 09:57 | Emergency Department Report ---
- General Chief complaint: Extremity Injury, Upper Stated complaint: SWOLLEN LFT THUMB Time Seen by Provider: 07/22/21 08:43 Source: patient Mode of arrival: Ambulatory Limitations: No Limitations - History of Present Illness Initial comments: This is a 35-year-old female nontoxic, well nourished in appearance, no acute signs of distress presents to the ED with c/o of redness and pain with some swelling to left thumb times several days. Patient has artificial nails and symptoms started after this. Patient denies any trauma or injuries. Patient denies any pus or drainage. Patient denies any fever, chills, nausea, vomiting, chest pain, shortness of breath, headache or stiff neck. Patient denies any allergies or significant past medical history. -: days(s) Severity: mild Severity scale (0 -10): 8 Quality: burning, aching Consistency: constant Improves with: rest Worsens with: palpation Context: none Associated symptoms: denies other symptoms - Related Data Home Medications Medication Instructions Recorded Confirmed Last Taken Pnv No.95/Ferrous Fum/Folic AC 1 each PO DAILY 05/22/18 06/12/18 06/02/18 [Prenavite Tablet] Previous Rx's Medication Instructions Recorded Last Taken Type Ferrous Sulfate [Feosol 325 MG tab] 325 mg PO BID 30 Days #60 tablet 06/12/18 Unknown Rx Ibuprofen [Ibuprofen 800] 800 mg PO Q6H 10 Days #30 tablet 06/12/18 Unknown Rx MDD 3200mg oxyCODONE /ACETAMINOPHEN [Percocet 1 tab PO Q4HR PRN 14 Days #30 tab 06/12/18 Unknown Rx 5/325] metroNIDAZOLE [Flagyl] 500 mg PO Q12HR #14 tab 06/19/19 Unknown Rx Ibuprofen [Motrin 800 MG tab] 800 mg PO Q8HR PRN #30 tablet 05/02/20 Unknown Rx cephALEXin [Keflex] 500 mg PO Q12HR #14 cap 05/02/20 Unknown Rx Acetaminophen/Codeine [Tylenol 1 tab PO Q6H PRN #12 tab 05/10/20 Unknown Rx /Codeine # 3 tab] Clindamycin [Clindamycin CAP] 300 mg PO Q6H 10 Days #40 capsule 05/10/20 Unknown Rx Mupirocin [Bactroban 2% OINT] 1 applic TP TID 10 Days #1 tube 05/10/20 Unknown Rx Naproxen 500 mg PO Q12H PRN #12 tablet 07/22/21 Unknown Rx Sulfamethoxazole/Trimethoprim 1 each PO BID #14 tablet 07/22/21 Unknown Rx [Bactrim DS TAB] Allergies Allergy/AdvReac Type Severity Reaction Status Date / Time No Known Allergies Allergy Verified 01/10/18 15:52 Abscess Boil HPI - HPI Chief Complaint: Extremity Injury, Upper Stated Complaint: SWOLLEN LFT THUMB Time Seen by Provider: 07/22/21 08:43 Home Medications: Home Medications Medication Instructions Recorded Confirmed Last Taken Pnv No.95/Ferrous Fum/Folic AC 1 each PO DAILY 05/22/18 06/12/18 06/02/18 [Prenavite Tablet] Previous Rx's Medication Instructions Recorded Last Taken Type Ferrous Sulfate [Feosol 325 MG tab] 325 mg PO BID 30 Days #60 tablet 06/12/18 Unknown Rx Ibuprofen [Ibuprofen 800] 800 mg PO Q6H 10 Days #30 tablet 06/12/18 Unknown Rx MDD 3200mg oxyCODONE /ACETAMINOPHEN [Percocet 1 tab PO Q4HR PRN 14 Days #30 tab 06/12/18 Unknown Rx 5/325] metroNIDAZOLE [Flagyl] 500 mg PO Q12HR #14 tab 06/19/19 Unknown Rx Ibuprofen [Motrin 800 MG tab] 800 mg PO Q8HR PRN #30 tablet 05/02/20 Unknown Rx cephALEXin [Keflex] 500 mg PO Q12HR #14 cap 05/02/20 Unknown Rx Acetaminophen/Codeine [Tylenol 1 tab PO Q6H PRN #12 tab 05/10/20 Unknown Rx /Codeine # 3 tab] Clindamycin [Clindamycin CAP] 300 mg PO Q6H 10 Days #40 capsule 05/10/20 Unknown Rx Mupirocin [Bactroban 2% OINT] 1 applic TP TID 10 Days #1 tube 05/10/20 Unknown Rx Naproxen 500 mg PO Q12H PRN #12 tablet 07/22/21 Unknown Rx Sulfamethoxazole/Trimethoprim 1 each PO BID #14 tablet 07/22/21 Unknown Rx [Bactrim DS TAB] Allergies/Adverse Reactions: Allergies Allergy/AdvReac Type Severity Reaction Status Date / Time No Known Allergies Allergy Verified 01/10/18 15:52 ED Review of Systems ROS: Stated complaint: SWOLLEN LFT THUMB Other details as noted in HPI Comment: All other systems reviewed and negative Constitutional: denies: chills, fever Eyes: denies: eye pain, eye discharge, vision change ENT: denies: ear pain, throat pain Respiratory: denies: cough, shortness of breath, wheezing Cardiovascular: denies: chest pain, palpitations Endocrine: no symptoms reported Gastrointestinal: denies: abdominal pain, nausea, diarrhea Genitourinary: denies: urgency, dysuria, discharge Musculoskeletal: denies: back pain, joint swelling, arthralgia Skin: denies: rash, lesions Neurological: denies: headache, weakness, paresthesias Psychiatric: denies: anxiety, depression Hematological/Lymphatic: denies: easy bleeding, easy bruising ED Past Medical Hx - Past Medical History Previous Medical History?: Yes Hx Hypertension: No Hx Diabetes: No Hx Deep Vein Thrombosis: No Hx Renal Disease: No Hx Sickle Cell Disease: No Hx Seizures: No Hx Asthma: No Hx HIV: No Additional medical history: OBESITY - Surgical History Past Surgical History?: Yes Additional Surgical History: X 2 - Social History Smoking Status: Never Smoker - Medications Home Medications: Home Medications Medication Instructions Recorded Confirmed Last Taken Type Pnv No.95/Ferrous Fum/Folic AC 1 each PO DAILY 05/22/18 06/12/18 06/02/18 History [Prenavite Tablet] Ferrous Sulfate [Feosol 325 MG tab] 325 mg PO BID 30 Days #60 tablet 06/12/18 Unknown Rx Ibuprofen [Ibuprofen 800] 800 mg PO Q6H 10 Days #30 tablet 06/12/18 Unknown Rx MDD 3200mg oxyCODONE /ACETAMINOPHEN [Percocet 1 tab PO Q4HR PRN 14 Days #30 tab 06/12/18 Unknown Rx 5/325] metroNIDAZOLE [Flagyl] 500 mg PO Q12HR #14 tab 06/19/19 Unknown Rx Ibuprofen [Motrin 800 MG tab] 800 mg PO Q8HR PRN #30 tablet 05/02/20 Unknown Rx cephALEXin [Keflex] 500 mg PO Q12HR #14 cap 05/02/20 Unknown Rx Acetaminophen/Codeine [Tylenol 1 tab PO Q6H PRN #12 tab 05/10/20 Unknown Rx /Codeine # 3 tab] Clindamycin [Clindamycin CAP] 300 mg PO Q6H 10 Days #40 capsule 05/10/20 Unknown Rx Mupirocin [Bactroban 2% OINT] 1 applic TP TID 10 Days #1 tube 05/10/20 Unknown Rx Naproxen 500 mg PO Q12H PRN #12 tablet 07/22/21 Unknown Rx Sulfamethoxazole/Trimethoprim 1 each PO BID #14 tablet 07/22/21 Unknown Rx [Bactrim DS TAB] ED Physical Exam - General Limitations: No Limitations General appearance: alert, in no apparent distress - Head Head exam: Present: atraumatic, normocephalic - Eye Eye exam: Present: normal appearance - Neck Neck exam: Present: normal inspection, full ROM. Absent: lymphadenopathy - Respiratory Respiratory exam: Absent: respiratory distress - Cardiovascular Cardiovascular Exam: Present: regular rate - Extremities Exam Extremities exam: Present: normal inspection, full ROM, tenderness, normal capillary refill. Absent: joint swelling - Expanded Upper Extremity Exam Left General: Present: normal inspection Shoulder Exam: Present: normal inspection, full ROM. Absent: tenderness Upper Arm exam: Present: normal inspection, full ROM. Absent: tenderness, swelling Elbow exam: Present: normal inspection, full ROM. Absent: tenderness, swelling Forearm Wrist exam: Present: normal inspection, full ROM. Absent: tenderness, swelling Hand Wrist exam: Present: normal inspection, full ROM, tenderness, swelling, erythema. Absent: abrasion, laceration, ecchymosis, deformity, crepidus, dislocation, amputation, nail avulsion, subungual hematoma Hand L/R Front: 1 - Positive: other (Cellulitis with some swelling but no induration or fluctuance.) Vascular: Present: normal capillary refill. Absent: vascular compromise (Neurovascular within normal limits) - Back Exam Back exam: Present: full ROM - Neurological Exam Neurological exam: Present: alert, oriented X3, normal gait - Psychiatric Psychiatric exam: Present: normal affect, normal mood - Skin Skin exam: Present: warm, dry, intact, normal color. Absent: rash ED Course Vital Signs 07/22/21 09:09 Respiratory 15 Rate - Reevaluation(s) Reevaluation #1: 07/22/21 09:55 Patient is speaking in full sentences with no signs of distress noted. ED Medical Decision Making - Radiology Data [facility] [address] [place] [address] XRay Report Signed Patient: KENRICK WATERS MR#: [id number] : 1985 Acct:[id number] Age/Sex: 35 / F ADM Date: 07/22/21 Loc: ED Attending Dr: Ordering Physician: GIOVANNI ERICKSON NP Date of Service: 07/22/21 Procedure(s): XR finger(s) 2+V LT Accession Number(s): [id number] cc: GIOVANNI MINOR NP Fluoro Time In Minutes: Left hand-3 views INDICATION: pain with swelling L thumb. COMPARISON: None. IMPRESSION: No acute osseous abnormality. Soft tissues are normal. Normal alignment. 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 Signer Name: Jarek Caban MD Signed: 07/22/2021 9:32 AM Workstation Name: [id number] Transcribed By: CADEN Dictated By: Jarek Caban MD Electronically Authenticated By: Jarek Caban MD Signed Date/Time: 07/22/21931 DD/ 0 TD/TT: - Medical Decision Making This is a 35-year-old female that presents with paronychia to left thumb. Patient is stable and was examined by me. There is no induration, fluctuance. No signs of abscess formation. Patient is notified of the x-ray results with no questions noted with patient. Patient received [place] for pain which stated symptoms are improving subsided. Patient be discharged with Bactrim. Patient was referred to Follow-up with a primary care doctor in 3-5 days or if symptoms worsen and continue return to emergency room as soon as possible. At time of discharge, the patient does not seem toxic or ill in appearance. No acute signs of distress noted. Patient agrees to discharge treatment plan of care. No further questions noted by the patient. Critical care attestation.: If time is entered above; I have spent that time in minutes in the direct care of this critically ill patient, excluding procedure time. ED Disposition Clinical Impression: Paronychia of left thumb Disposition: 01 HOME / SELF CARE / HOMELESS Is pt being admited?: No Does the pt Need Aspirin: No Condition: Stable Instructions: Paronychia Additional Instructions: Follow-up with a primary care doctor in 3-5 days or if symptoms worsen and continue return to emergency room as soon as possible. Prescriptions: Sulfamethoxazole/Trimethoprim [Bactrim DS TAB] 1 each PO BID #14 tablet Naproxen 500 mg PO Q12H PRN #12 tablet PRN Reason: Pain , Severe (7-10) Referrals: PRIMARY MD VIDHI [Primary Care Provider] - 3-5 Days ZACHERY CHING MD [Staff Physician] - 3-5 Days Forms: Work/School Release Form(ED) Time of Disposition: 09:58
== END 2021-07-22 10:44 | disposition home or self-care (01) ==
LOC: ED 08:33
DX: L03.012 Cellulitis of left finger (principal); Z98.890 Other specified postprocedural states; Z79.899 Other long term (current) drug therapy
CPT/HCPCS: 99283